=== PATIENT | female | born 1975 | race Caucasian/White ===

== ENCOUNTER 2024-10-20 04:01 | Inpatient (IN) | payer MEDICAID, SELFPAY ==
--- OUTSIDE RECORDS SUMMARY | 2024-09-11 11:00 | XMS_ITS ---
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 Assessments Encounter Date Diagnosis (ICD Code) Assessment Notes Treatment Notes Treatment Clinical Notes Section Notes 09/11/2024 Spondylosis without myelopathy or radiculopathy, cervicothoracic region (ICD-10 - M47.813) Plan Of Treatment Next Appt Details Provider Name:Kevon vidal, 12/07/2024 10:30:00 AM, [address], [address], [place], [address], Provider Name:Kevon vidal, 12/25/2024 10:00:00 AM, [address], [address], [place], [address], Progress Notes * Basilia ALCANTARA RDOB: 4 (49 yo F)Acc No.[id number]:09/11/2024 Patient: Basilia Schofield Provider: Chely Alvarez II, M.D. :1975 A ge:49 Y S ex:Female Date:09/11/2024 Address:[address] [place] [address], [place] [facility], [id number] Pcp:Nelson Soto DO-PCP * * Sign off status: Completed true * Provider: Chely Alvarez II, M.D. Date: 0 09/11/2024 Generated for Salud phillips/Osmin/Kary on: 0 10/20/2024 03:47 AM CDT
--- OUTSIDE RECORDS SUMMARY | 2024-10-11 11:45 | XMS_ITS ---
Author Organization [facility] Address [address] [place] [address] Care Team Providers Care Bartender Name Role Phone Charles -PCPNelson Primary Care Provider Unav ailable Kevon Alvarez II Unavailable [phone] Allergies Allergen (clinical drug ingredient) Drug/Non Drug Allergy documented on EMR Reaction Allergy Type Onset Date Status Vicodin hives Drug Allergy Active Ceftin hives Drug Allergy Active Toradol rash Drug Allergy Active ibuprofen Advil hives Drug Allergy Active ibuprofen hives Drug Allergy Active doxycycline doxycycline dizziness Drug Allergy Act kathi Results Component Value Reference Range Notes Urine Test ANALYZER Reviewed date:10/12/2024 07:18:53 AM Interpretation:+OPI +OXY +HYD Performing Lab: Notes/Report: +OPI +OXY +HYD Heroin Metabolite (6AM) NEG Amphetamine (AMP) NEG Benzodiazepine (BARRON) NEG Buprenorphine NEG Cocaine (FELECIA) NEG Hydrocodone (HYD) POS Methadone (MTD) NEG Opiate (OPI) POS Oxycodone (OXY) POS REASON FOR VISIT low back pain Medications Medication SIG (Take, Route, Frequency, Duration) Notes Start Date End Date Status Lidocaine, Topical 5% 1 patch applied topically once a day; Duration: 28 days Active Acetaminophen-Oxycodone Hydrochloride 325 mg-10 mg 1 tab(s) orally 3 times a day; Duration: 28 days AUGUST 2024 RX, DO NOT FILL SOONER THAN 28 DAYS, (OK TO FILL EARLY, ONLY IF CLOSED) M47.816 Active acetaminophen-oxycodone 325 mg-10 mg 1 tab(s) orally 3 times a day; Duration: 28 days JULY 2024 RX, DO NOT FILL SOONER THAN 28 DAYS, (OK TO FILL EARLY, ONLY IF CLOSED) M47.816 Active Claritin 10 mg 1 tab(s) orally once a day Active Synthroid 75 mcg (0.075 mg) 1 tab(s) orally once a day; Duration: 30 day(s) Active QUEtiapine 300 mg 1 tab(s) orally once a day 02/05/2022 Active All Day Allergy (Cetirizine) 10 mg 10mg orally PRN Active furosemide 40 mg 1 tab(s) orally PRN Active loratadine 10 mg 1 tab(s) orally PRN Active nortriptyline 75 mg 1 cap(s) orally once a day (at bedtime); Duration: 30 day(s) 02/05/2022 Active gabapentin 800 mg 1 tab(s) orally 4 times a day Active tiZANidine 4 mg 1 tab(s) orally 3 times a day; Duration: 30 day(s) 02/05/2022 Active pantoprazole 40 mg 1 ea orally PRN Active ergocalciferol 50,000 intl units 1 cap(s) orally once a week Active Vital Signs Blood pressure systolic 123 mm Hg 10/12/19 25 Blood pressure diastolic 74 mm Hg 025 Heart Rate 68 /min 10/11/2024 Height 65 in 10/11/2024 Weight 154 lbs 10/11/2024 BMI 25.62 kg/m2 10/11/2024 Encounters Encounter Location Date Provider Diagnosis [facility] [address] [place] [address] 10/11/2024 Kevon Alvarez Other skilled nursing (current) drug therapy Z79.899 ; Spondylosis without myelopathy or radiculopathy, lumbar region M47.816 ; Other spondylosis, cervical region M47.892 ; Pain in thoracic spine M54.6 ; Spondylosis without myelopathy or radiculopathy, thoracic region M47.814 ; Unilateral primary osteoarthritis, unspecified knee M17.10 ; Other spondylosis with radiculopathy, cervical region M47.22 and Radiculopathy, lumbar region M54.16 Assessments Encounter Date Diagnosis (ICD Code) Assessment Notes Treatment Notes Treatment Clinical Notes Section Notes 10/11/2024 Other terminal worker (current) drug therapy (ICD-10 - Z79.899) 10/11/2024 1) Refill oxycodone/APA P 10/325 mg TID 2) refill lidoderm 3. FU in 2 months 4. MRI of low back- after PT completed 5. Schedule RFA GHASSAN L4 L5 S1 August 18, 2024: The patient presents to the [facility] office in [facility] for an audiovisual-telem edicine visit. The patient was evaluated by the certified medical biller and a urine drug screen was obtained as well as vital signs. Portions of the physical examination were assisted by the certified medical biller during the audiovisual-telem edicine visit August 18, 2024: Basilia is a 49-year-old lady who has a history of neck surgery in the past. She has no history of lower back surgery. She does have persistent middle back and lower back pain however. The lower back pain extends into the left lower extremity down to the left foot. Her pain level today is 7/10. She underwent RFA in the thoracic spine in January 2024 and on the lower back May 2024. We discussed interventional therapy and she would like to repeat the thoracic RFA now and we will do that in addition to ordering TL S MRI scan without contrast because of what the patient describes as worsening pain in the middle and lower back. She says that there are times when his unbearable. She continues to take oxycodone and gabapentin. The [place] and urine drug screens were reviewed. The patient says that she can call the spine surgeon that did the neck surgery for an evaluation and I encouraged her to do that. In the meantime we will get the MRI scans and recheck for any changes in pathology. Patient is a 48 yo female who presents back to the clinic today for follow-up evaluation/treatm ent of chronic low back and midback pain. Low back pain is axial in nature and worsens with facet loading. Status post RFA GHASSAN L4-S1 with 90% relief ongoing. Thoracic spine pain is axial in nature and worsens with facet loading. Denies radiculopathy. She continues a HEP as tolerated. She also utilizes heat, ice, and topicals for additional relief. RTC in 2 months or sooner if needed. 10/11/2024 Spondylosis without myelopathy or radiculopathy, lumbar region (ICD-10 - M47.816) August 18, 2024: The patient presents to the [facility] office in [facility] for an audiovisual-telem edicine visit. The patient was evaluated by the certified medical biller and a urine drug screen was obtained as well as vital signs. Portions of the physical examination were assisted by the certified medical biller during the audiovisual-telem edicine visit August 18, 2024: Basilia is a 49-year-old lady who has a history of neck surgery in the past. She has no history of lower back surgery. She does have persistent middle back and lower back pain however. The lower back pain extends into the left lower extremity down to the left foot. Her pain level today is 7/10. She underwent RFA in the thoracic spine in January 2024 and on the lower back May 2024. We discussed interventional therapy and she would like to repeat the thoracic RFA now and we will do that in addition to ordering TL S MRI scan without contrast because of what the patient describes as worsening pain in the middle and lower back. She says that there are times when his unbearable. She continues to take oxycodone and gabapentin. The [place] and urine drug screens were reviewed. The patient says that she can call the spine surgeon that did the neck surgery for an evaluation and I encouraged her to do that. In the meantime we will get the MRI scans and recheck for any changes in pathology. Patient is a 48 yo female who presents back to the clinic today for follow-up evaluation/treatm ent of chronic low back and midback pain. Low back pain is axial in nature and worsens with facet loading. Status post RFA GHASSAN L4-S1 with 90% relief ongoing. Thoracic spine pain is axial in nature and worsens with facet loading. Denies radiculopathy. She continues a HEP as tolerated. She also utilizes heat, ice, and topicals for additional relief. RTC in 2 months or sooner if needed. 10/11/2024 Other spondylosis, cervical region (ICD-10 - M47.892) August 18, 2024: The patient presents to the [facility] office in [facility] for an audiovisual-telem edicine visit. The patient was evaluated by the certified medical biller and a urine drug screen was obtained as well as vital signs. Portions of the physical examination were assisted by the certified medical biller during the audiovisual-telem edicine visit August 18, 2024: Basilia is a 49-year-old lady who has a history of neck surgery in the past. She has no history of lower back surgery. She does have persistent middle back and lower back pain however. The lower back pain extends into the left lower extremity down to the left foot. Her pain level today is 7/10. She underwent RFA in the thoracic spine in January 2024 and on the lower back May 2024. We discussed interventional therapy and she would like to repeat the thoracic RFA now and we will do that in addition to ordering TL S MRI scan without contrast because of what the patient describes as worsening pain in the middle and lower back. She says that there are times when his unbearable. She continues to take oxycodone and gabapentin. The [place] and urine drug screens were reviewed. The patient says that she can call the spine surgeon that did the neck surgery for an evaluation and I encouraged her to do that. In the meantime we will get the MRI scans and recheck for any changes in pathology. Patient is a 48 yo female who presents back to the clinic today for follow-up evaluation/treatm ent of chronic low back and midback pain. Low back pain is axial in nature and worsens with facet loading. Status post RFA GHASSAN L4-S1 with 90% relief ongoing. Thoracic spine pain is axial in nature and worsens with facet loading. Denies radiculopathy. She continues a HEP as tolerated. She also utilizes heat, ice, and topicals for additional relief. RTC in 2 months or sooner if needed. 10/11/2024 Pain in thoracic spine (ICD-10 - M54.6) August 18, 2024: The patient presents to the [facility] office in [facility] for an audiovisual-telem edicine visit. The patient was evaluated by the certified medical biller and a urine drug screen was obtained as well as vital signs. Portions of the physical examination were assisted by the certified medical biller during the audiovisual-telem edicine visit August 18, 2024: Basilia is a 49-year-old lady who has a history of neck surgery in the past. She has no history of lower back surgery. She does have persistent middle back and lower back pain however. The lower back pain extends into the left lower extremity down to the left foot. Her pain level today is 7/10. She underwent RFA in the thoracic spine in January 2024 and on the lower back May 2024. We discussed interventional therapy and she would like to repeat the thoracic RFA now and we will do that in addition to ordering TL S MRI scan without contrast because of what the patient describes as worsening pain in the middle and lower back. She says that there are times when his unbearable. She continues to take oxycodone and gabapentin. The [place] and urine drug screens were reviewed. The patient says that she can call the spine surgeon that did the neck surgery for an evaluation and I encouraged her to do that. In the meantime we will get the MRI scans and recheck for any changes in pathology. Patient is a 48 yo female who presents back to the clinic today for follow-up evaluation/treatm ent of chronic low back and midback pain. Low back pain is axial in nature and worsens with facet loading. Status post RFA GHASSAN L4-S1 with 90% relief ongoing. Thoracic spine pain is axial in nature and worsens with facet loading. Denies radiculopathy. She continues a HEP as tolerated. She also utilizes heat, ice, and topicals for additional relief. RTC in 2 months or sooner if needed. 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 The patient was evaluated by the certified medical biller and a urine drug screen was obtained as well as vital signs. Portions of the physical examination were assisted by the certified medical biller during the audiovisual-telem edicine visit August 18, 2024: Basilia is a 49-year-old lady who has a history of neck surgery in the past. She has no history of lower back surgery. She does have persistent middle back and lower back pain however. The lower back pain extends into the left lower extremity down to the left foot. Her pain level today is 7/10. She underwent RFA in the thoracic spine in January 2024 and on the lower back May 2024. We discussed interventional therapy and she would like to repeat the thoracic RFA now and we will do that in addition to ordering TL S MRI scan without contrast because of what the patient describes as worsening pain in the middle and lower back. She says that there are times when his unbearable. She continues to take oxycodone and gabapentin. The [place] and urine drug screens were reviewed. The patient says that she can call the spine surgeon that did the neck surgery for an evaluation and I encouraged her to do that. In the meantime we will get the MRI scans and recheck for any changes in pathology. Patient is a 48 yo female who presents back to the clinic today for follow-up evaluation/treatm ent of chronic low back and midback pain. Low back pain is axial in nature and worsens with facet loading. Status post RFA GHASSAN L4-S1 with 90% relief ongoing. Thoracic spine pain is axial in nature and worsens with facet loading. Denies radiculopathy. She continues a HEP as tolerated. She also utilizes heat, ice, and topicals for additional relief. RTC in 2 months or sooner if needed. 10/11/2024 Unilateral primary osteoarthritis, unspecified knee (ICD-10 - M17.10) August 18, 2024: The patient presents to the [facility] office in [facility] for an audiovisual-telem edicine visit. The patient was evaluated by the certified medical biller and a urine drug screen was obtained as well as vital signs. Portions of the physical examination were assisted by the certified medical biller during the audiovisual-telem edicine visit August 18, 2024: Basilia is a 49-year-old lady who has a history of neck surgery in the past. She has no history of lower back surgery. She does have persistent middle back and lower back pain however. The lower back pain extends into the left lower extremity down to the left foot. Her pain level today is 7/10. She underwent RFA in the thoracic spine in January 2024 and on the lower back May 2024. We discussed interventional therapy and she would like to repeat the thoracic RFA now and we will do that in addition to ordering TL S MRI scan without contrast because of what the patient describes as worsening pain in the middle and lower back. She says that there are times when his unbearable. She continues to take oxycodone and gabapentin. The [place] and urine drug screens were reviewed. The patient says that she can call the spine surgeon that did the neck surgery for an evaluation and I encouraged her to do that. In the meantime we will get the MRI scans and recheck for any changes in pathology. Patient is a 48 yo female who presents back to the clinic today for follow-up evaluation/treatm ent of chronic low back and midback pain. Low back pain is axial in nature and worsens with facet loading. Status post RFA GHASSAN L4-S1 with 90% relief ongoing. Thoracic spine pain is axial in nature and worsens with facet loading. Denies radiculopathy. She continues a HEP as tolerated. She also utilizes heat, ice, and topicals for additional relief. RTC in 2 months or sooner if needed. 10/11/2024 Other spondylosis with radiculopathy, cervical region (ICD-10 - M47.22) August 18, 2024: The patient presents to the [facility] office in [facility] for an audiovisual-telem edicine visit. The patient was evaluated by the certified medical biller and a urine drug screen was obtained as well as vital signs. Portions of the physical examination were assisted by the certified medical biller during the audiovisual-telem edicine visit August 18, 2024: Basilia is a 49-year-old lady who has a history of neck surgery in the past. She has no history of lower back surgery. She does have persistent middle back and lower back pain however. The lower back pain extends into the left lower extremity down to the left foot. Her pain level today is 7/10. She underwent RFA in the thoracic spine in January 2024 and on the lower back May 2024. We discussed interventional therapy and she would like to repeat the thoracic RFA now and we will do that in addition to ordering TL S MRI scan without contrast because of what the patient describes as worsening pain in the middle and lower back. She says that there are times when his unbearable. She continues to take oxycodone and gabapentin. The [place] and urine drug screens were reviewed. The patient says that she can call the spine surgeon that did the neck surgery for an evaluation and I encouraged her to do that. In the meantime we will get the MRI scans and recheck for any changes in pathology. Patient is a 48 yo female who presents back to the clinic today for follow-up evaluation/treatm ent of chronic low back and midback pain. Low back pain is axial in nature and worsens with facet loading. Status post RFA GHASSAN L4-S1 with 90% relief ongoing. Thoracic spine pain is axial in nature and worsens with facet loading. Denies radiculopathy. She continues a HEP as tolerated. She also utilizes heat, ice, and topicals for additional relief. RTC in 2 months or sooner if needed. 10/11/2024 Radiculopathy, lumbar region (ICD-10 - M54.16) August 18, 2024: The patient presents to the [facility] office in [facility] for an audiovisual-telem edicine visit. The patient was evaluated by the certified medical biller and a urine drug screen was obtained as well as vital signs. Portions of the physical examination were assisted by the certified medical biller during the audiovisual-telem edicine visit August 18, 2024: Basilia is a 49-year-old lady who has a history of neck surgery in the past. She has no history of lower back surgery. She does have persistent middle back and lower back pain however. The lower back pain extends into the left lower extremity down to the left foot. Her pain level today is 7/10. She underwent RFA in the thoracic spine in January 2024 and on the lower back May 2024. We discussed interventional therapy and she would like to repeat the thoracic RFA now and we will do that in addition to ordering TL S MRI scan without contrast because of what the patient describes as worsening pain in the middle and lower back. She says that there are times when his unbearable. She continues to take oxycodone and gabapentin. The [place] and urine drug screens were reviewed. The patient says that she can call the spine surgeon that did the neck surgery for an evaluation and I encouraged her to do that. In the meantime we will get the MRI scans and recheck for any changes in pathology. Patient is a 48 yo female who presents back to the clinic today for follow-up evaluation/treatm ent of chronic low back and midback pain. Low back pain is axial in nature and worsens with facet loading. Status post RFA GHASSAN L4-S1 with 90% relief ongoing. Thoracic spine pain is axial in nature and worsens with facet loading. Denies radiculopathy. She continues a HEP as tolerated. She also utilizes heat, ice, and topicals for additional relief. RTC in 2 months or sooner if needed. Plan Of Treatment Medication Medication Name Sig Start Date Stop Date Notes Lidocaine, Topical 5% 1 patch applied topically once a day; Duration: 28 days Acetaminophen-Oxycodone Hydrochloride 325 mg-10 mg 1 tab(s) orally 3 times a day; Duration: 28 days AUGUST 2024 RX, DO NOT FILL SOONER THAN 28 DAYS, (OK TO FILL EARLY, ONLY IF CLOSED) M47.816 acetaminophen-oxycodone 325 mg-10 mg 1 tab(s) orally 3 times a day; Duration: 28 days JULY 2024 RX, DO NOT FILL SOONER THAN 28 DAYS, (OK TO FILL EARLY, ONLY IF CLOSED) M47.816 Treatment Notes Assessment Notes Other terminal worker (current) drug therapy 10/11/2024 1) Refill oxycodone/APAP 10/325 mg TID 2) refill lidoderm 3. FU in 2 months 4. MRI of low back- after PT completed 5. Schedule RFA GHASSAN L4 L5 S1 Next Appt Details Follow Up: 2 Months, Reason: Provider Name:Kevon vidal, 12/07/2024 10:30:00 AM, [address], [address], [address], Provider Name:Kevon vidal, 12/25/2024 10:00:00 AM, [address], [address], [place], [address], Progress Notes * Basilia ALCANTARA RDOB: 4 (49 yo F)Acc No.[id number]:10/11/2024 Patient: Basilia WHITFIELD Quinn Provider: Chely Alvarez II, M.D. :1975 A ge:49 Y S ex:Female Date:10/11/2024 Address:[facility] [place] [address], [place], [id number] Pcp:Nelson Soto DO-PCP Subjective: * Chief Complaints: * 1 . Low back pain. * HPI: T ODAYS PAIN EVALUATION: 49 year old female presents with c/o MEDICATION FOLLOW UP: T he patient is currently prescribed Percocet 10/325mg TID, which provides 9 0% relief of pain symptoms for 4 hours. The last dose was taken 0 08/18/2024 Denies side effects. PROCEDURAL FOLLOW UP: T he patient is present today for a follow-up after receiving 09/11/2024 RFA GHASSAN T8 T9 T10?Patient reports _80% pain relief since having the procedure and has lasted ongoing as of 10/11/2024 . C URRENT PAIN SYMPTOMS: L ocation of Worst Pain: M id-Back, A dditional Location of Pain: L ow Back GHASSAN, P ain Frequency: c onstant, always, P ain Description: b urning, cramping, sharp, A verage Pain Score VAS: 8 , P ain Exacerbation: activities,excersuise, P ain Alleviation: m edications, injections, A DL/Quality of Life Interference: Housework, Activities, yard work. P AIN MANAGEMENT TREATMENT HISTORY: IMAGING HISTORY: 0 12/02/2021 CT CERVICAL:No acute fracture or traumatic malalignment. Prevertebral soft tissues unremarkable. Multilevel degenerative changes noted. Most pronounced degenerative changes are again seen at the C5-C6 level. 0 12/15/2021 - MRI THORACIC:Unchanged shallow disc osteophyte changes at T11-T12. No thoracic spin high-grade central canal or foraminal stenosis. Partially assessed C5-C6 degenerative changes with potentially clinically significant central canal/neural foraminal stenosis 0 12/15/2021 - MRI LUMBAR:Redemonstrated L4-L5 disc bulge/protrusion eccentric in the left greater then right foraminal spaces. There is grossly unchanged moderate left and mild right foraminal narrowing. 1 - MRI CERVICAL:Broad-based dorsal and dorsolateral discosteophyte protrusion C5-C6 level with ventral cord flattening and moderate central canal stenosis. AP canal diameter approximately 5 mm midline. Severe left and moderate right foraminal stenosis. P REVIOUS INJECTION\PROCEDURE HISTORY: 1 04/26/2021#1 TMBB GHASSAN T8, T9, T10, provided 80% relief for 1 day 1 05/18/2021#2 TMBB GHASSAN T8, T9, T10, provided 80% relief for 2 days 0 04/20/2022RFA GHASSAN T8,T9,T10 90% relief for 3 months 0 07/14/2022#1 TFESI GHASSAN L4/L5 10% relief for 1 days 0 12/14/2022RFA GHASSAN T8, T9. T10 90% relief for 4 months 1 04/24/2022#1 LMBB GHASSAN L4 L5 L5 90% for 5 days 0 04/06/2023#2 LMBB GHASSAN L4, L5, S1, 80% relief for 2 days 0 4RFA GHASSAN L4, L5, S1 90% relief for 2 months 0 4RFA GHASSAN T8, T9, T10 80% relief for 6 months 0 12/07/2023- RFA GHASSAN L4, L5, S1 70% relief for for 5-6 months 1 4RFA GHASSAN T8,T9,T10; 80% relief for 6 months 0 06/15/2024RFA GHASSAN L4 L5 S1 90% relief for 4-5 months 0 09/11/2024RFA GHASSAN T8 T9 T10,80% relief ongoing as of 10/11/2024. P HYSICAL/AQUA THERAPY/DME/OTHER HISTORY: N o therapies reported - was told to avoid from ortho doctor 0 10/11/2024 Patient continues a prescribed home exercise program 3-5 times per week (stretches). P ERTINENT SURGICAL EVALUATIONS/SPECIALIST CONSULTS N o prior surgical consult . P REVIOUS PAIN CLINIC CARE: 2 022 - Former patient of [facility] . S UMMARY OF INITIAL EVALUATION: 1 04/13/2021New patient consults referred by Charles for chronic low back pain onset 15-year without incideent h istory of chronic spine pain. No inciting incident or accident. Just gradual worsening pain. Diagnosed with fibromyalgia and treated with gabapentin over the last several years. States her gabapentin keeps her fibro pain under control. Averaging approximately 2- 800 mg tablets nightly, but fills 120 tablets every 30 days. When asked what she does with her excessive medications, she states she flushes them down the toilet every month. Advised against this as it looks as she is taking at qid. encouraged to fern picker every other month or have pcp decrease dose. Gabapentin is currently prescribed by her PCP and does not need us to take over. If we do, we will lower dose. A s for her chronic cervical, thoracic, lumbar pain, they all are axial in nature, with minimal to no radiation. Worse with activity and controlled with injections and oral medication. She is underwent cervical and lumbar MRI approximately 2 months ago. Cervical MRI did show left-sided severe foraminal narrowing, central canal narrowing, patient's does not have any signs or symptoms of spinal stenosis or nerve impingement. Pain complaints and physical exam are more consistent with cervical spondylosis, arthritic changes. If she develops radicular pain, will have her evaluted by surgeon. States she has underwent cervical injections in the past which worsened her pain, and is not interested in repeating her cervical injections. Some relief with patient care assistant in the past, but she has been towed by an orthopedic physician (unknown name and time frame) to avoid patient care assistant as it may dislocate her neck.? H er mid back pain has been controlled with intermittent thoracic medial branch blocks, thoracic radiofrequency, thoracic trigger point injections. Last injections performed were over 1 year ago. Thoracic imaging is not available today. It is likely degenerative, arthritic, spondylosis in nature the same as her cervical lumbar spine. H er lumbar spine is not her worst pain today. Lumbar MRI reviewed. She does have a left-sided herniated disc but no complaints of left-sided radiculopathy. Has underwent lumbar injections in the past which were helpful.Discussed with patient the importance of multimodal analgesic. Not controlling with high-dose pain medications. We are her third pain clinic in the last 6 months. We will obtain notes from 2 prior clinics. She was previously on Percocet 10 mg 4 times daily. Discussed our clinic provides a maximum of a morphine equivalents of 30 mg. We will provide low-dose opioid medication, place her under close observation, and perform a multimodal analgesic plan. She is persistent that she can take no other pain medications, and can only tolerate Percocet.? S he has several red flags on her chart today, discussed importance of compliance, only taking her medication, taking as prescribed, using 1 pharmacy, being high risk and under close observation, and any abnormalities places her at risk for being dismissed from the clinic. W ill start at Percocet 7.5 mg 3 times daily as needed pain. Discussed that this will be the max dose our clinic will provide. Will schedule bilateral thoracic medial branch blocks at approximate levels T8-T9 and T10. U josette drug screen and Benjamín were reviewed today. She has recently filled multiple scripts for Percocet, by multiple providers, filled at multiple pharmacies.. C OMPLIANCE: RISK ASSESSMENT AND STRATIFICATION: R ISK GROUP: HIGH RISK . U RINE DRUG TESTIN 05/31/2023 Screen Unexpected (+BZO) 0 11/15/2023 Screen Expected Definitive Expected 1 Screen Expected 1 05/07/2023 Screen Expected 0 05/01/2024 Screen Expected, Definitive Expected 0 06/26/2024 Screen Expected 0 08/18/2024 0 10/11/2024. M ONITORING: M orphine Equivalent (MME): 45 K ASPER reviewed today and appropriate . T ESTING/RISK ASSESSMENTS O RT Score/Result: 0. * ROS: G ENERAL: Fever D enies. H EENT: Positive for r ecent dental procedure with teeth removal.? C ARDIOVASCULAR: Positive for d enies cardiovascular symptoms. ? R ESPIRATORY: Positive for d enies respiratory issues. G ASTROINTESTINAL: Positive for h eartburn. G ENITOURINARY: Positive for d enies genitourinary issues. M USCULOSKELETAL: Positive for l ow back pain, neck pain. N EUROLOGICAL: Positive for d enies neurological issues. P SYCHIATRIC: Positive for d enies psychological issues. E NDOCRINE: Positive for d enies endocrine issues. * Medical History: v itamin d deficiency diagnosed 1998 managed by , GERD diagnosed [address] Soto, hypothyroidism diagnosed 2014, managed by Dr. Soto. * Surgical History: c -section / [facility]/ doctor unknown / 3 night stay 2005, ankle/ [facility]/ doctor unknown/ 7 day stay 2012, cholecystectomy/ [facility]/ doctor unknown/ 1 night stay 2006, appendectomy/ [facility]/ doctor unknown/ 3 night stay 1992, thyroidectomy/ [facility]/ doctor unknown/ 2 night stay 2007, open heart/ [facility] / doctor unknown/ 14 day stay 2011, stomach/ [facility]/ doctor unknown / 5 day stay 2012. * Hospitalization/Major Diagno stic Procedure: Sophie Jimenez EKG showed low heart rate pt also had low magnesium and potassium overnight stay 05/2024. * Family History: N on-Contributory. Denies family hx of substance abuse. * Social History: S moking: Yes P PD: , age started smoking: ,determination:. P ersonal History Drug Use: No. Alcohol: No. * Medications: T aking Synthroid 75 mcg (0.075 mg) tablet 1 tab(s) orally once a day , Taking Claritin 10 mg tablet 1 tab(s) orally once a day , Taking tiZANidine 4 mg tablet 1 tab(s) orally 3 times a day , Taking gabapentin 800 mg tablet 1 tab(s) orally 4 times a day , Taking ergocalciferol 50,000 intl units capsule 1 cap(s) orally once a week , Taking pantoprazole 40 mg delayed release tablet 1 ea orally PRN , Taking nortriptyline 75 mg capsule 1 cap(s) orally once a day (at bedtime) , Taking loratadine 10 mg tablet 1 tab(s) orally PRN , Taking furosemide 40 mg tablet 1 tab(s) orally PRN , Taking All Day Allergy (Cetirizine) 10 mg tablet 10mg orally PRN , Taking QUEtiapine 300 mg tablet 1 tab(s) orally once a day , Taking acetaminophen-oxycodone 325 mg-10 mg tablet 1 tab(s) orally 3 times a day , Notes to Pharmacist: JULY 2024 RX, DO NOT FILL SOONER THAN 28 DAYS, (OK TO FILL EARLY, ONLY IF CLOSED) M47.816, Taking Acetaminophen-Oxycodone Hydrochloride 325 mg-10 mg tablet 1 tab(s) orally 3 times a day , Notes to Pharmacist: AUGUST 2024 RX, DO NOT FILL SOONER THAN 28 DAYS, (OK TO FILL EARLY, ONLY IF CLOSED) M47.816, Taking Lidocaine, Topical 5% film 1 patch applied topically once a day * Allergies: d oxycycline: dizziness - Allergy, Toradol: rash - Allergy, Vicodin: hives - Allergy, Ceftin: hives - Allergy, ibuprofen: hives - Allergy, Advil: hives - Allergy. Objective: * Vitals: B P: 123/74, HR: 68, Pain VAS (0-10): 9, Ht: 65, Wt: 154, BMI:25.62Index. * Examination: G eneral Examination: Nurse/Leaf Conditioner Helper: Peter gaines(MA-Pooja Handley 10/11/2024 04:13:59 PM EDT >. General Appearance: w ell-nourished individual in no acute distress. The patient is alert and oriented and cooperative for evaluation. HEENT: unremarkable. Heart: r egular rate via radial pulse. Neurologic Exam: P atient ambulates with an antalgic gait, pitched forward. Skin visible skin - normal, no rash. ? L umbar Spine/Lower Back: Palpation: diffuse tenderness throughout lumbar region, most particularly over lower lumbar facet joints. Spasms absent. Inspection: Spinal alignment no abnormal curvature noted.? Sensory exam: s ensation intact to light touch. Motor system: m otor strength s ymmetric in all muscle groups bilaterally. Range of motion: ROM moderately limited, moderate pain induced. Hyperextension - Pain with Facet loading, bilateral lateral flexion and extension induce moderate pain. T horacic Spine/Upper Back: Inspection: d iffuse tenderness throughout t horacic region, most particularly over lower T8-10.. Palpation: tenderness to palpation at the mid thoracic level, tenderness to palpation at the thoraco-lumbar junction. Range of motion of spines: limited ROM w flexion and extension and lateral rotation, pain noted w facet loading. Assessment: * Assessment: 1. O ther skilled nursing (current) drug therapy - Z79.899 (Primary) 2 . S pondylosis without myelopathy or radiculopathy, lumbar region - M47.816 3 . O ther spondylosis, cervical region - M47.892 4 . P ain in thoracic spine - M54.6 & #160; 5 . S pondylosis without myelopathy or radiculopathy, thoracic region - M47.814 ? 6 . U nilateral primary osteoarthritis, unspecified knee - M17.10 7 .?Other spondylosis with radiculopathy, cervical region - M47.22 8 . R adiculopathy, lumbar region - M54.16 August 18, 2024: The patient pr esents to the [facility] office in [facility] for an audiovisual-telemedicine visit. The patient was evaluated by the certified medical biller and a urine drug screen was obtained as well as vital signs. Portions of the physical examination were assisted by the certified medical biller during the audiovisual-telemedicine visit August 18, 2024: Basilia is a 49-year-old lady who has a history of neck surgery in the past. She has no history of lower back surgery. She does have persistent middle back and lower back pain however. The lower back pain extends into the left lower extremity down to the left foot. Her pain level today is 7/10. She underwent RFA in the thoracic spine in January 2024 and on the lower back May 2024. We discussed interventional therapy and she would like to repeat the thoracic RFA now and we will do that in addition to ordering TL S MRI scan without contrast because of what the patient describes as worsening pain in the middle and lower back. She says that there are times when his unbearable. She continues to take oxycodone and gabapentin. The Benjamín and urine drug screens were reviewed. The patient says that she can call the spine surgeon that did the neck surgery for an evaluation and I encouraged her to do that. In the meantime we will get the MRI scans and recheck for any changes in pathology. Patient is a 48 yo female who presents back to the clinic today for follow-up evaluation/treatment of chronic low back and midback pain. Low back pain is axial in nature and worsens with facet loading. Status post RFA GHASSAN L4-S1 with 90% relief ongoing. Thoracic spine pain is axial in nature and worsens with facet loading. Denies radiculopathy. She continues a HEP as tolerated. She also utilizes heat, ice, and topicals for additional relief. RTC in 2 months or sooner if needed. Plan: * Treatment: Value Reference Range H eroin Metabolite (6AM) NEG * A mphetamine (AMP) NEG * B enzodiazepine (BARRON) NEG * B uprenorphine NEG * C ocaine (FELECIA) NEG * H ydrocodone (HYD) POS POS * M ethadone (MTD) NEG * O piate (OPI) POS POS * O xycodone (OXY) POS POS * Carol Adrian 10/11/2024 04:54: 40 PM EDT >Naresh(A[employer]CRAFT CABIN [employer]ANER-BLAKE)Tania 10/11/2024 05:05:20 PM EDT > (Confirm All) Send specimen for definitive testing on Amphetamines, Anticonvulsants, Antitussive, Barbiturates,Bath Salts, Benzodiazepines, Buprenorphine, Fentanyl,WILFRIDO Analogue, Heroin, Illicits, Methadone, Methylphenidate, Muscle Relaxants, Nicotine, Opiates, Opioid Antagonist, Other Anxiolytic,Recreational Compounds, Sleep Aids, SSRI/SNRI,Synthetic Cannabinoids,Tricyclics drug classes Patient is prescribed an Opioid and the preliminary urine drug screen is positive for Opiates/Morphine. Send for confirmation to confirm that the specific prescribed Opioid is present as well as the appropriate metabolites Notes: 10/11/2024 1) Refill oxycodone/APAP 10/325 mg TID 2) refill lidoderm 3. FU in 2 months 4. MRI of low back- after PT completed 5. Schedule RFA GHASSAN L4 L5 S1?? * Follow Up: 2 Months * * Electronic signature of Vinay Alvarez II, M.D. on 10/20/2024 at 03:47 AM CDT Sign off status: Pending * Provider: Chely Alvarez II, M.D. Date: 10/11/2024 Generated for Salud phillips/Osmin/Israelsmitting on: 0 10/20/2024 03:47 AM CDT History and Physical Notes * HPI (History of Present Illness) Category Sub-Category Detail Notes Category Not es PAIN MANAGEMENT TREATMENT HISTORY SUMMARY OF INITIAL EVALUATION: 02/11/2022 New patient consults referred by Charles for chronic low back pain onset 15-year without incideent history of chronic spine pain. No inciting incident or accident. Just gradual worsening pain. Diagnosed with fibromyalgia and treated with gabapentin over the last several years. States her gabapentin keeps her fibro pain under control. Averaging approximately 2- 800 mg tablets nightly, but fills 120 tablets every 30 days. When asked what she does with her excessive medications, she states she flushes them down the toilet every month. Advised against this as it looks as she is taking at qid. encouraged to fern picker every other month or have pcp decrease dose. Gabapentin is currently prescribed by her PCP and does not need us to take over. If we do, we will lower dose. As for her chronic cervical, thoracic, lumbar pain, they all are axial in nature, with minimal to no radiation. Worse with activity and controlled with injections and oral medication. She is underwent cervical and lumbar MRI approximately 2 months ago. Cervical MRI did show left-sided severe foraminal narrowing, central canal narrowing, patient's does not have any signs or symptoms of spinal stenosis or nerve impingement. Pain complaints and physical exam are more consistent with cervical spondylosis, arthritic changes. If she develops radicular pain, will have her evaluted by surgeon. States she has underwent cervical injections in the past which worsened her pain, and is not interested in repeating her cervical injections. Some relief with patient care assistant in the past, but she has been towed by an orthopedic physician (unknown name and time frame) to avoid patient care assistant as it may dislocate her neck.? Her mid back pain has been controlled with intermittent thoracic medial branch blocks, thoracic radiofrequency, thoracic trigger point injections. Last injections performed were over 1 year ago. Thoracic imaging is not available today. It is likely degenerative, arthritic, spondylosis in nature the same as her cervical lumbar spine. Her lumbar spine is not her worst pain today. Lumbar MRI reviewed. She does have a left-sided herniated disc but no complaints of left-sided radiculopathy. Has underwent lumbar injections in the past which were helpful.Discussed with patient the importance of multimodal analgesic. Not controlling with high-dose pain medications. We are her third pain clinic in the last 6 months. We will obtain notes from 2 prior clinics. She was previously on Percocet 10 mg 4 times daily. Discussed our clinic provides a maximum of a morphine equivalents of 30 mg. We will provide low-dose opioid medication, place her under close observation, and perform a multimodal analgesic plan. She is persistent that she can take no other pain medications, and can only tolerate Percocet.? She has several red flags on her chart today, discussed importance of compliance, only taking her medication, taking as prescribed, using 1 pharmacy, being high risk and under close observation, and any abnormalities places her at risk for being dismissed from the clinic. Will start at Percocet 7.5 mg 3 times daily as needed pain. Discussed that this will be the max dose our clinic will provide. Will schedule bilateral thoracic medial branch blocks at approximate levels T8-T9 and T10. Urine drug screen and Benjamín were reviewed today. She has recently filled multiple scripts for Percocet, by multiple providers, filled at multiple pharmacies. IMAGING HISTORY: 12/02/2021 CT CERVIC AL: No acute fracture or traumatic malalignment. Prevertebral soft tissues unremarkable. Multilevel degenerative changes noted. Most pronounced degenerative changes are again seen at the C5-C6 level.12/15/2021 - MRI THORACIC: Unchanged shallow disc osteophyte changes at T11-T12. No thoracic spin high-grade central canal or foraminal stenosis. Partially assessed C5-C6 degenerative changes with potentially clinically significant central canal/neural foraminal /19/2022 - MRI LUMBAR: Redemonstrated L4-L5 disc bulge/protrusion eccentric in the left greater then right foraminal spaces. There is grossly unchanged moderate left and mild right foraminal narrowing.01/13/2022 - MRI CERVICAL: Broad-based dorsal and dorsolateral discosteophyte protrusion C5-C6 level with ventral cord flattening and moderate central canal stenosis. AP canal diameter approximately 5 mm midline. Severe left and moderate right foraminal stenosis PHYSICAL/AQUA THERAPY/DME/OT HER HISTORY: No therapies reported - was told to shari pagan from ortho doctor 10/11/2024 Patient continues a prescribed home exercise program 3-5 times per week (stretches) PERTINENT SURGICAL EVALUATIONS/SPECIALIST CONSULTS No prior surgical consult PREVIOUS INJECTION\PROCEDURE HISTORY: #1 TMBB GHASSAN T8, T9, T10, provided 80% relief for 1 day 03/17/2022 #2 TMBB GHASSAN T8, T9, T10, provided 80% relief for 2 days 04/20/2022 RFA GHASSAN T8,T9,T10 90% relief for 3 months 07/14/2022 #1 TFESI GHASSAN L4/L5 10% relief for 1 days 12/14/2022 RFA GHASSAN T8, T9. T10 90% relief for 4 months 02/22/2023 #1 LMBB GHASSAN L4 L5 L5 90% for 5 days 04/06/2023 #2 LMBB GHASSAN L4, L5, S1, 80% relief for 2 days 05/20/2023 RFA GHASSAN L4, L5, S1 90% relief for 2 months 07/06/2023 RFA GHASSAN T8, T9, T10 80% relief for 6 months 12/07/2023 - RFA GHASSAN L4, L5, S1 70% relief for for 5-6 months 02/01/2024 RFA GHASSAN T8,T9,T10; 80% relief for 6 months 06/15/2024 RFA GHASSAN L4 L5 S1 90% relief for 4-5 months 09/11/2024 RFA GHASSAN T8 T9 T10,80% relief ongoing as of 10/11/2024 PREVIOUS PAIN CLINIC CARE: 2021 - Former patient of [facility] COMPLIANCE RISK ASSESSMENT AND STRATIFICATION: RISK GROUP: HIGH RISK URINE DRUG TESTIN05/31/2023 Screen Un expected (+BZO) 11/15/2023 Screen Expected Definitive Expected 01/07/2024 Screen Expected 03/06/2024 Screen Expected 05/01/2024 Screen Expected, Definitive Expected 06/26/2024 Screen Expected 08/18/2024 10/11/2024 MONITORING: Morphine Equivalent (MME): 45 BENJAÍMN reviewed today and appropriate TESTING/RISK ASSESSMENTS ORT Score/Resul t: 0 TODAYS PAIN EVALUATION MEDICATION FOLLOW UP: The patient is currently prescribed Percocet 10/325mg TID, which provides 90% relief of pain symptoms for 4 hours. The last dose was taken 08/18/2024 Denies side effects CURRENT PAIN SYMPTOMS: Location of Worst Pain:: Mid-Back Additional Location of Pain:: Low Back B [place] Pain Frequency:: constant, always Pain Description:: burning, cramping, sh constanza Average Pain Score VAS:: 8 Pain Exacerbation:: activities,excersuis e Pain Alleviation:: medications, injectio ns ADL/Quality of Life Interference:: House work, Activities, yard work PROCEDURAL FOLLOW UP: The patient is pre sent today for a follow-up after receiving 09/11/2024 RFA GHASSAN T8 T9 T10 Patient reports _80% pain relief since having the procedure and has lasted ongoing as of 10/11/2024 Examination Category Sub-Category Detail Notes Category Not es General Examination HEENT: unremarkable Heart: regular rate via rad ial pulse General Appearance: well-nourished indiv idual in no acute distress. The patient is alert and oriented and cooperative for evaluation Skin visible skin - ric l, no rash Neurologic Exam: Patient ambulates wi th an antalgic gait, pitched forward Nurse/Leaf Conditioner Helper: Pooja Joy (MA-Lex) 10/11/2024 04:13:59 PM EDT > Thoracic Spine/Upper Back Range of motion of spi faheem: limited ROM w flexion and extension and lateral rotation, pain noted w facet loading Inspection: diffuse tenderness t hroughout thoracic region, most particularly over lower T8-10. Palpation: tenderness to palpat ion at the mid thoracic level, tenderness to palpation at the thoraco-lumbar junction Lumbar Spine/Lower Back Motor system: motor st rength symmetric in all muscle groups bilaterally Sensory exam: sensation intact to light touch Range of motion: ROM moderately limit ed, moderate pain induced. Hyperextension - Pain with Facet loading, bilateral lateral flexion and extension induce moderate pain Inspection: Spinal alignment no abnormal curvature noted Palpation: diffuse tenderness t hroughout lumbar region, most particularly over lower lumbar facet joints. Spasms absent
[2024-10-20] VITALS (23 sets, daily range): BP systolic 78–159; BP diastolic 54–94; PULSE 65–90; RESP 11–16; TEMP 36.1–36.6; O2SAT 92–99; BMI 29.9; BMI 25.7
--- NOTE | 2024-10-20 04:02 | ECG_ITS ---
APPROVED REPORT Exam: Resting ECG HR:67 bpm ECG Measurements Heart Rate 67 AXES RI 155 P 52 QRSd 163 QRS 26 QT 489 T 33 QTc 505 Conclusion SINUS RHYTHM WITH SINUS ARRHYTHMIA RIGHT BUNDLE BRANCH BLOCK [120+ ms QRS DURATION, UPRIGHT V1, 40+ ms S IN I/aVL/V4/V5/V6] ABNORMAL ECG UNCONFIRMED REPORT Electronically signed by : Emil Pradhan, 10/20/2024 16:47:14
--- NOTE | 2024-10-20 04:04 | CT_ITS ---
PROCEDURE INFORMATION: Exam: CTA Head With Contrast, Arteriography Exam date and time: 10/20/2024 4:38 AM Age: 49 years old Clinical indication: Stroke-like symptoms; Altered mental status/memory loss; Additional info: AMS, headache TECHNIQUE: Imaging protocol: Computed tomographic angiography of the head with contrast. Exam focused on the arteries. 3D rendering (Not supervised by radiologist): MIP and/or 3D reconstructed images were created by the technologist. Radiation optimization: All CT scans at this facility use at least one of these dose optimization techniques: automated exposure control; mA and/or kV adjustment per patient size (includes targeted exams where dose is matched to clinical indication); or iterative reconstruction. Contrast material: ISOVUE; Contrast volume: 80 ml; Contrast route: INTRAVENOUS (IV); COMPARISON: CT HEAD/BRAIN WO CON 10/20/2024 4:35 AM FINDINGS: ANTERIOR CIRCULATION: Right internal carotid artery: Intracranial segment is patent with no significant stenosis or occlusion. No aneurysm. Right middle cerebral artery: No occlusion or significant stenosis. No aneurysm. Right anterior cerebral artery: No occlusion or significant stenosis. No aneurysm. Left internal carotid artery: Intracranial segment is patent with no significant stenosis. No aneurysm. Left middle cerebral artery: No occlusion or significant stenosis. No aneurysm. Left anterior cerebral artery: No occlusion or significant stenosis. No aneurysm. POSTERIOR CIRCULATION: Right vertebral artery: No occlusion or significant stenosis. No aneurysm. Left vertebral artery: No occlusion or significant stenosis. No aneurysm. Basilar artery: No occlusion or significant stenosis. No aneurysm. Right posterior cerebral artery: No occlusion or significant stenosis. No aneurysm. Left posterior cerebral artery: No occlusion or significant stenosis. No aneurysm. Veins: There is no venous thrombosis. Brain: Normal. No hemorrhage. Unremarkable white matter. No mass effect. Cerebral ventricles: Normal. No ventriculomegaly. Bones/joints: Unremarkable. No acute fracture. Soft tissues: Unremarkable. IMPRESSION: No evidence for a embolism, significant stenosis, dissection, aneurysm, or venous thrombosis.
--- NOTE | 2024-10-20 04:04 | CT_ITS ---
PROCEDURE INFORMATION: Exam: CT Head Without Contrast Exam date and time: 10/20/2024 4:35 AM Age: 49 years old Clinical indication: Stroke-like symptoms; Altered mental status/memory loss; Additional info: AMS TECHNIQUE: Imaging protocol: Computed tomography of the head without contrast. Radiation optimization: All CT scans at this facility use at least one of these dose optimization techniques: automated exposure control; mA and/or kV adjustment per patient size (includes targeted exams where dose is matched to clinical indication); or iterative reconstruction. Other technique: STROKE PROTOCOL was implemented. COMPARISON: CT HEAD/BRAIN WO CON 10/20/2024 4:35 AM FINDINGS: Brain: Normal. No hemorrhage. Age appropriate white matter. No mass effect. No focal mass. The garcia-white matter junction is intact. Cerebral ventricles: No ventriculomegaly. Paranasal sinuses: Visualized sinuses are unremarkable. No fluid levels. Mastoid air cells: Visualized mastoid air cells are well aerated. Bones: Unremarkable. No acute fracture. Soft tissues: Unremarkable. IMPRESSION: Unremarkable noncontrast examination of brain. There is no hemorrhage or mass. There is no large infarction seen. ASSESSMENT: ASPECTS ([facility] Stroke Program Early CT Score) is 10.
--- NOTE | 2024-10-20 04:04 | CT_ITS ---
PROCEDURE INFORMATION: Exam: CTA Neck With Contrast Exam date and time: 10/20/2024 4:38 AM Age: 49 years old Clinical indication: Cognitive deficit; Altered mental status; Additional info: AMS, headache TECHNIQUE: Imaging protocol: Computed tomographic angiography of the neck with contrast. Exam focused on the cervical segments of the vasculature. 3D rendering (Not supervised by radiologist): MIP and/or 3D reconstructed images were created by the technologist. Radiation optimization: All CT scans at this facility use at least one of these dose optimization techniques: automated exposure control; mA and/or kV adjustment per patient size (includes targeted exams where dose is matched to clinical indication); or iterative reconstruction. Contrast material: ISOVUE; Contrast volume: 80 ml; Contrast route: INTRAVENOUS (IV); COMPARISON: CT HEAD/BRAIN WO CON 10/20/2024 4:35 AM FINDINGS: Right common carotid artery: No stenosis. No dissection or occlusion. Right internal carotid artery: Moderate atherosclerotic disease of the right sided internal carotid artery bulb that results in stenosis measuring 60%. There is good distal flow. Right external carotid artery: No occlusion or stenosis of the origin. Left common carotid artery: No stenosis. No dissection or occlusion. Left internal carotid artery: Moderate atherosclerotic disease within left-sided internal carotid artery bulb that results in stenosis measuring 50%. There is good distal flow. Left external carotid artery: No occlusion or stenosis of the origin. Right vertebral artery: No stenosis. No dissection or occlusion. Left vertebral artery: No stenosis. No dissection or occlusion. Thyroid: Postsurgical changes from resection of the thyroid. Soft tissues: Normal. No significant soft tissue swelling. Bones/joints: No acute fracture. Esophagus: Thickening of the wall the esophagus with adjacent fat stranding. IMPRESSION: 1. Moderate atherosclerotic disease of the right sided internal carotid artery bulb that results in stenosis measuring 60%. There is good distal flow. 2. Moderate atherosclerotic disease within left-sided internal carotid artery bulb that results in stenosis measuring 50%. There is good distal flow. 3. The remainder of the vascular structures are unremarkable. There is no other significant stenosis. There is no occlusion or aneurysm. 4. Thickening of the wall the esophagus with adjacent fat stranding. 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 REFERENCES: NASCET CRITERIA. The degree of stenosis in the cervical segment of the internal carotid artery is based on NASCET criteria. Normal is no stenosis. Mild is less than 50% stenosis. Moderate is 50-69% stenosis. Severe is 70% to 99% stenosis. Total occlusion is no detectable patent lumen.
--- NOTE | 2024-10-20 04:12 | ED_ITS ---
Discharge Plan Disposition Patient Disposition: Admitted Prescriptions Prescriptions: No Action Unobtainable Clinical Impressions Clinical Impression: Acute hypotension Altered mental status Qualifiers: Altered mental status type: stupor Qualified Code(s): R40.1 - Stupor Instructions Patient Instructions: DI for Altered Mental Status Print Language Print Language: Kinyarwanda Discharge ED Provider: Luis Stanley General Adult HPI General Chief complaint: Dizziness Stated complaint: lethargic, medication reaction, ams Time Seen by Provider: 10/20/24 04:01 History of Present Illness HPI narrative: 49-year-old female with a clear past medical history presents with altered mental status and hypotension from home. She has not been seen in our hospital before. She reportedly went to bed after taking her normal medications which include tizanidine, Seroquel, nortriptyline, gabapentin, Crestor, levothyroxine. She woke up with altered mental status, confused, dizzy. No reported trauma. She reports that she has had a headache and neck pain for the last several days. She is unable to provide a detailed history, is drowsy, intermittently arousable. EMS reports that there was a father on scene but he did not provide any additional history. Patient reports that she has had neck surgery, thyroid surgery, hysterectomy. She reports that she took only her normal amount of medications, did not take any extra. She reports that she has had meningitis before. Patient received Narcan with EMS with no change. Patient's blood pressure was very low, 50 systolic with EMS but improved with some fluids. Related Data Home Medications ?Medication ?Instructions ?Recorded ?Confirmed Unobtainable 10/20/24 10/20/24 Allergies Allergy/AdvReac Type Severity Reaction Status Date / Time doxycycline AdvReac Unknown Verified 10/20/24 04:15 allergy reaction tramadol AdvReac Unknown Verified 10/20/24 04:15 allergy reaction [facility] Disclaimer: The information contained in this section may have been updated after the patient was seen, as this information can be updated by other users. Social History Smoking Status: Current every day smoker alcohol intake: never current occupational status: other Travel in the last 8 weeks?: None ROS Obtained: Yes All systems reviewed & no additional complaints except as documented Physical Exam General General appearance: alert and lethargic Head Head exam: atraumatic and normocephalic Eye Eye exam: Present normal appearance and PERRL; Absent EOMI (Significant nystagmus, difficulty with eye movements) ENT ENT exam: Present normal oropharynx and normal external ear exam Neck Neck exam: Present normal inspection and full ROM (Pain with range of motion) Chest Chest inspection: Present normal inspection and symmetric chest wall rise; Absent tenderness Respiratory Respiratory exam: Present normal lung sounds bilaterally; Absent respiratory distress Cardiovascular Cardiovascular exam: Present regular rate and normal rhythm Abdominal Exam Abdominal exam: Present soft; Absent distention, tenderness or guarding Extremities Exam Extremities exam: Present normal inspection; Absent edema or joint swelling Back Exam Back exam: Present normal inspection; Absent tenderness Neurological Exam Neurological exam: Present other (Patient has intact sensation and movement in all 4 extremities. Patient is drowsy, arouses with painful stimuli.) Psychiatric Psychiatric exam: Present flat affect Skin Skin exam: Present warm, dry and normal color Lymphatic Lymphatic Findings: no adenopathy Medical Decision Making Medical Records Medical records reviewed: Yes I reviewed the patient's medical records. Screening: Per USPSTF and CDC recommendations, given the prevalence of disease in our region, it is our hospital?s policy to screen for HIV and viral Hepatitis for all patients aged 18 and over and those with ongoing risk factors. Amilcar Inquiry Pt receiving controlled substance: No Amilcar was queried for this patient: No Vital Signs: 10/20/24 04:04 10/20/24 04:20 10/20/24 04:49 Temperature 96.9 F L Temperature Source Temporal Artery Scan Pulse Rate 67 74 Pulse Rate [Radial] 69 Respiratory Rate 14 13 16 Blood Pressure 101/64 L 117/70 Blood Pressure [Right Arm] 78/54 L Blood Pressure Mean 74 84 Blood Pressure Mean [Right Arm] 62 Blood Pressure Source [Right Arm] Manual Cuff/ Auscultation Blood Pressure Position [Right Arm] Supine 02 Sat by Pulse Oximetry 98 99 97 Oxygen Delivery Method Room Air 10/20/24 04:50 10/20/24 05:00 10/20/24 05:10 Temperature Temperature Source Pulse Rate 70 70 71 Pulse Rate [Radial] Respiratory Rate 12 12 13 Blood Pressure 124/72 116/72 102/61 L Blood Pressure [Right Arm] Blood Pressure Mean 81 79 71 Blood Pressure Mean [Right Arm] Blood Pressure Source [Right Arm] Blood Pressure Position [Right Arm] 02 Sat by Pulse Oximetry 98 99 99 Oxygen Delivery Method 10/20/24 05:20 10/20/24 05:30 07/25/25 05:40 Temperature Temperature Source Pulse Rate 70 70 74 Pulse Rate [Radial] Respiratory Rate 13 12 12 Blood Pressure 103/61 L 100/61 L 90/59 L Blood Pressure [Right Arm] Blood Pressure Mean 73 68 64 Blood Pressure Mean [Right Arm] Blood Pressure Source [Right Arm] Blood Pressure Position [Right Arm] 02 Sat by Pulse Oximetry 98 97 98 Oxygen Delivery Method Lab Data Lab results reviewed: Yes I reviewed the patient's lab results. Lab Results 10/20/24 04:15: WBC 6.8, RBC 3.53 L, Hgb 10.6 L, Hct 30.6 L, MCV 86.7, MCH 30.0, MCHC 34.6, RDW 12.7, Plt Count 135 L, MPV 10.1, Neut % (Auto) 58.3, Lymph % (Auto) 30.6, [place] % (Auto) 9.4 H, Eos % (Auto) 1.0, Baso % (Auto) 0.3, Neut # (Auto) 4.0, Lymph # (Auto) 2.1, [place] # (Auto) 0.6, Eos # (Auto) 0.1, Baso # (Auto) 0.0, PT 11.8, INR 1.07, VBG pH 7.43 H, VBG pCO2 33.5 L, VBG pO2 150.3 H, VBG HCO3 21.7 L, VBG Total CO2 22.8 L, VBG O2 Saturation 98.8 H, VBG Base Excess -2.6 L, VBG Lactic Acid 2.2 H, Sodium 129 L, Potassium 2.5 L*, Chloride 101, Carbon Dioxide 24, Anion Gap 6.5, BUN 14, Creatinine 0.90, Estimated Creat Clear 95, Estimated GFR 66, Est GFR ( Amer) 80, Glucose 93, Calcium 7.0 L, Magnesium 1.7, Total Bilirubin 0.2, AST 24, ALT 15, Alkaline Phosphatase 55, Troponin I < 0.01, NT-Pro-B Natriuret Pep 274 H, Total Protein 4.9 L, Albumin 2.3 L, Globulin 2.6, Albumin/Globulin Ratio 0.9 L, Lipase 43, TSH < 0.02 L, Thyroxine (T4) 6.8, Salicylates < 1.0 L, Acetaminophen < 10 L, Plasma/Serum Alcohol < 10 10/20/24 05:00: Urine Color Yellow, Urine Appearance Clear, Urine pH 5.5, Ur Specific [place] 1.015, Urine Protein Negative, Urine Glucose (UA) Negative, Urine Ketones Negative, Urine Blood Negative, Urine Nitrate Negative, Urine Bilirubin Negative, Urine Urobilinogen 0.2, Ur Leukocyte Esterase Negative, Urine RBC 3-5, Urine WBC 3-5, Ur Squamous Epith Cells 3-5, Urine Bacteria 1+, Hyaline Casts 10-20, Urine Mucus 1+, Urine Opiates Screen Negative, Urine Methadone Screen Negative, Ur Barbituates Screen Negative, Ur Phencyclidine Scrn Negative, Ur Amphetamines Screen Negative, U Benzodiazepines Scrn Negative, Urine Cocaine Screen Negative, U Marijuana (THC) Screen Negative 10/20/24 04:15 10/20/24 04:15 Orders (Tests/Meds): ED MEDICATIONS Generic Name Dose Route Start Last Admin Trade Name Freq PRN Reason Stop Dose Admin Vancomycin/PEG/NA[place]/Lysine/Water 1.5 gm in 300 mls @ 150 mls/hr 10/20/24 04:30 Vancomycin 1.5gm/300ml (Peg) Premix IV 10/20/24 06:29 ONCE ONE Potassium Chloride/Water 100 mls @ 100 mls/hr 10/20/24 05:45 10/20/24 05:52 Potassium Chloride 10meq/100ml Ivpb IV 10/20/24 08:44 100 mls/hr Q1H SUJIT Administration Calcium Gluconate/Sodium Chloride 1 gm in 50 mls @ 50 mls/hr 10/20/24 05:50 Calcium Gluconate 1,000mg/50ml Nacl Premix IV 10/20/24 06:49 ONCE ONE Miscellaneous 1 each 10/20/24 04:15 10/20/24 06:14 Vancomycin Consult Request NOTAPPLIC 11/19/24 04:14 1 each CONSULT PHARMACY SUJIT Administration Discontinued Medications Generic Name Dose Route Start Last Admin Trade Name Freq PRN Reason Stop Dose Admin Sodium Chloride 1,000 mls @ 999 mls/hr 10/20/24 04:15 10/20/24 05:01 Sod Chlor 0.9% 1000ml Bag IV 10/20/24 05:15 999 mls/hr .Q1H1M SUJIT Administration Ceftriaxone Sodium 2 gm/ 100 mls @ 200 mls/hr 10/20/24 04:27 Sodium Chloride IV 10/20/24 04:56 ONCE ONE Magnesium Sulfate 2 gm in 50 mls @ 150 mls/hr 10/20/24 05:37 10/20/24 05:45 Magnesium Sulfate 2gm/50ml Premix IV 10/20/24 05:56 150 mls/hr ONCE ONE Administration Iopamidol 160 ml 10/20/24 04:48 10/20/24 04:49 Iopamidol-370 (76%);100ml Bottle IV 10/20/24 04:49 160 ml ONCE ONE Administration Sodium Chloride 50 ml 10/20/24 04:48 10/20/24 04:49 0.9 % Sodium Chloride 50 Ml Vial IV 10/20/24 04:49 50 ml ONCE ONE Administration Sodium Chloride 10 ml 10/20/24 04:48 10/20/24 04:49 Sodium Chloride 0.9% 10ml Syr (Rad Only) IV 10/20/24 04:49 10 ml ONCE ONE Administration ORDERS Category Date Time Status CT angio chest PE protocol Stat Cat Scan 10/20/24 04:[address] angio head Stat Cat Scan 10/20/24 04:[address] angio neck Stat Cat Scan 10/20/24 04:[address] head/brain wo con Stat Cat Scan 10/20/24 04:04 Completed Acetaminophen Stat Lab 10/20/24 04:15 Completed BNP [NT Pro Brain Natriuretic Pep.] Stat Lab 10/20/24 04:15 Completed CBC w/Auto Diff [Complete Blood Count Auto Diff] Stat Lab 10/20/24 04:15 Completed CMP [Comprehensive Metabolic Panel] Stat Lab 10/20/24 04:15 Completed CSF Cell Count w/ Dif Stat Lab 10/20/24 06:06 Received CSF Total Protein Stat Lab 10/20/24 06:06 Received Ethanol [Ethyl Alcohol] Stat Lab 10/20/24 04:15 Completed HIV Combo Stat Lab 10/20/24 04:15 Received Hepatitis C Ab Qual. W/ RFX Stat Lab 10/20/24 04:15 Received INR [Prothrombin Time INR] Stat Lab 10/20/24 04:15 Completed Lactate Venous Stat Lab 10/20/24 04:25 Ordered Lipase Stat Lab 10/20/24 04:15 Completed Magnesium Stat Lab 10/20/24 04:15 Completed Meningitis/Encephalitis panel Stat Lab 10/20/24 06:06 Received Salicylate Stat Lab 10/20/24 04:15 Completed T4 (Thyroxine) Stat Lab 10/20/24 04:15 Completed TSH [Thyroid Stimulating Hormone] Stat Lab 10/20/24 04:15 Completed Troponin I Q3H Lab 10/20/24 04:15 Completed Troponin I Q3H Lab 10/20/24 07:15 Ordered UA [Urinalysis and Microscopic] Stat Lab 10/20/24 05:00 Completed UDS [Drug Screen,Urine] Stat Lab 10/20/24 05:00 Completed Blood Culture Stat Micro 10/20/24 04:50 Received CSF Culture & Gram Stain Stat Micro 10/20/24 06:06 Received VBG [Venous Blood Gas] Stat RT 10/20/24 04:15 Completed ECG Data Tracing #1: I reviewed this ECG and interpreted as documented below: Sinus rhythm, right bundle branch block, no obvious ischemic changes. ECG initial impression date: 10/20/24 ECG initial impression time: 04:02 Medical Decision Narrative: 49-year-old female with unclear past medical history presents via EMS with hypotension and altered mental status, reports headache for the last few days, woke up dizzy, remembers taking her night meds.. History was obtained via interactive discussion with EMS, patient. On arrival, patient is afebrile, hypotensive with systolic in the 70s, regular rate and rhythm, satting appropriately on room air. Full physical exam performed and significant for no focal neurologic deficits, no evidence of trauma, patient is drowsy, somewhat confused, arouses to loud voice and painful stimuli, normal sensation in all extremities, nystagmus noted with extraocular movements. Differential includes but is not limited to medication overdose, intentional or unintentional, intracranial lesion, sepsis, meningitis. Patient was given 1 L IV fluid bolus for hypotension on arrival. Workup initiated including broad-spectrum laboratory and imaging evaluation including CT head CTA head neck CT chest. On re-evaluation, patient blood pressure significantly improved, now able with maps in the 70s after 1 L IV fluid bolus. Mental status unchanged. Laboratory workup independently interpreted by me and significant for significant hypokalemia with potassium 2.5. Also notable for hypocalcemia, hyponatremia at 129, VBG with only minimally elevated lactate, negative initial troponin. Thyroid studies nonactionable. Urine shows negative UDS, no infection.. Imaging independently interpreted by me and significant for CT head, CT head neck without intracranial lesion, bleeding, aneurysm. CT chest shows no PE on my interpretation. See radiology read for full review of final results. Given altered mental status, patient reported headache, hypotension, borderline low temperature, I cannot clinically rule out meningitis. Given this, emergent lumbar puncture was performed and patient was initiated on vancomycin and ceftriaxone for empiric coverage of meningitis after LP was performed. Given patient history, exam and workup, patient's presentation most likely represents altered mental status and hypotension, could be sedative-hypnotic overdose given she is on multiple sedating medications. Less likely intracranial infection as etiology. Interactive discussion was had with hospitalist on-call for admission for further evaluation management. Procedures Risk/Benefits of Procedure(s) Were Explained: Yes Lumbar Puncture Time Out Performed: Yes Patient Position: left lateral decubitus Skin Prep: 0.5% Chlorhexidine/Alcohol Local Anesthetic: lidocaine 1% Amount of anesthesia used (mL): 4 Spinal Needle Gauge: 20G Interspace Used: L3-L4 Opening Pressure (cmH20): 18 Fluid Initially Obtained: clear Complications: none Critical Care Critical Care Time Critical Care Time: Yes Attestation: On 10/20/24, the high probability of a clinically significant, sudden or life threatening deterioration of the following system(s) required my full and direct attention, intervention and personal management. The time I documented below is in addition to time spent performing reported procedures but includes the following listed in this critical care notation. Total Time Total Critical Care Time: 40
--- NOTE | 2024-10-20 04:18 | CT_ITS ---
PROCEDURE INFORMATION: Exam: CTA Chest With Contrast Exam date and time: 10/20/2024 4:44 AM Age: 49 years old Clinical indication: Other: Hypotension; Additional info: Hypotension, AMS TECHNIQUE: Imaging protocol: Computed tomographic angiography of the chest with contrast. Exam focused on the arteries. 3D rendering (Not supervised by radiologist): MIP and/or 3D reconstructed images were created by the technologist. Radiation optimization: All CT scans at this facility use at least one of these dose optimization techniques: automated exposure control; mA and/or kV adjustment per patient size (includes targeted exams where dose is matched to clinical indication); or iterative reconstruction. Contrast material: ISOVUE; Contrast volume: 80 ml; Contrast route: INTRAVENOUS (IV); COMPARISON: CT ANGIO NECK 10/20/2024 4:38 AM FINDINGS: Pulmonary arteries: Normal. No pulmonary emboli. Aorta: Unremarkable. No aortic aneurysm. No aortic dissection. Lungs: Bibasilar atelectasis. Pleural spaces: Unremarkable. No pneumothorax. No pleural effusion. Prior median sternotomy. Heart: Unremarkable. No cardiomegaly. No pericardial effusion. Coronary arteries: Small amount of coronary calcium. Lymph nodes: Unremarkable. No enlarged lymph nodes. Bones/joints: Unremarkable. No acute fracture. Soft tissues: Cholecystectomy Unremarkable. IMPRESSION: 1. No evidence of pulmonary embolus or other acute process. 2. Small amount of coronary calcium present.
[2024-10-20 04:41] LABS: VBG PCO2 33.5 mmol/L (35-51); VBG PH 7.43 mmol/L (7.31-7.41); VBG PO2 150.3 mmol/L (28-40)
[2024-10-20 04:42] LABS: Lactate Venous 2.2 mmol/L (0.4-2.0); VBG HCO3 21.7 mmol/L (23-30)
--- OUTSIDE RECORDS SUMMARY | 2024-10-20 04:48 | XMS_ITS | Patient Health Record ---
Author Organization [facility] Address [address] [place] [address] Care Team Providers Care Galley Cook Name Role Phone Charles -PCPNelson Primary Care Provider Unav ailable Kevon Alvarez II Unavailable Michi Jacques Unavailable [phone] Allergies Allergen (clinical drug ingredient) Drug/Non Drug Allergy documented on EMR Reaction Allergy Type Onset Date Status Vicodin hives Drug Allergy Active Ceftin hives Drug Allergy Active Toradol rash Drug Allergy Active ibuprofen Advil hives Drug Allergy Active ibuprofen hives Drug Allergy Active doxycycline doxycycline dizziness Drug Allergy Act kathi Results Component Value Reference Range Notes Urine Test ANALYZER Reviewed date:01/10/2024 07:21:16 AM Interpretation:+OXY Performing Lab: Notes/Report: +OXY Heroin Metabolite (6AM) NEG Amphetamine (AMP) NEG Benzodiazepine (BARRON) NEG Buprenorphine NEG Cocaine (FELECIA) NEG Hydrocodone (HYD) NEG Methadone (MTD) NEG Opiate (OPI) NEG Oxycodone (OXY) POS Urine Test ANALYZER Reviewed date:05/02/2024 07:49:05 AM Interpretation:+OXY Performing Lab: Notes/Report: +OXY Heroin Metabolite (6AM) NEG Amphetamine (AMP) NEG Benzodiazepine (BARRON) NEG Buprenorphine NEG Cocaine (FELECIA) NEG Hydrocodone (HYD) NEG Methadone (MTD) NEG Opiate (OPI) NEG Oxycodone (OXY) POS Urine Test ANALYZER Reviewed date:08/18/2024 04:08:45 PM Interpretation:+OXY Performing Lab: Notes/Report: +OXY Heroin Metabolite (6AM) NEG Amphetamine (AMP) NEG Benzodiazepine (BARRON) NEG Buprenorphine NEG Cocaine (FELECIA) NEG Hydrocodone (HYD) NEG Methadone (MTD) NEG Opiate (OPI) NEG Oxycodone (OXY) POS Urine Test ANALYZER Reviewed date:11/15/2023 02:03:33 PM Interpretation:+HYD+OPI+OXY Performing Lab: Notes/Report: +HYD+OPI+OXY Heroin Metabolite (6AM) NEG Amphetamine (AMP) NEG Benzodiazepine (BARRON) NEG Buprenorphine NEG Cocaine (FELECIA) NEG Hydrocodone (HYD) POS Methadone (MTD) NEG Opiate (OPI) POS Oxycodone (OXY) POS Urine Test ANALYZER Reviewed date:03/07/2024 01:30:12 PM Interpretation:+OXY Performing Lab: Notes/Report: +OXY Heroin Metabolite (6AM) NEG Amphetamine (AMP) NEG Benzodiazepine (BARRON) NEG Buprenorphine NEG Cocaine (FELECIA) NEG Hydrocodone (HYD) NEG Methadone (MTD) NEG Opiate (OPI) NEG Oxycodone (OXY) POS Urine Test LCMS Definitive Reviewed date:05/30/2024 01:54:36 PM Interpretation:+Lance +Oxy3/3 Performing Lab: Notes/Report: +Lance +Oxy3/3 Urine Test ANALYZER Reviewed date:10/12/2024 07:18:53 AM Interpretation:+OPI +OXY +HYD Performing Lab: Notes/Report: +OPI +OXY +HYD Heroin Metabolite (6AM) NEG Amphetamine (AMP) NEG Benzodiazepine (BARRON) NEG Buprenorphine NEG Cocaine (FELECIA) NEG Hydrocodone (HYD) POS Methadone (MTD) NEG Opiate (OPI) POS Oxycodone (OXY) POS Urine Test LCMS Definitive Reviewed date:11/23/2023 06:29:23 AM Interpretation:+gbp+oxy 3/3 Performing Lab: Notes/Report: +gbp+oxy 3/3 Urine Test ANALYZER Reviewed date:06/26/2024 02:34:36 PM Interpretation:+OXY Performing Lab: Notes/Report: +OXY Heroin Metabolite (6AM) NEG Amphetamine (AMP) NEG Benzodiazepine (BARRON) NEG Buprenorphine NEG Cocaine (FELECIA) NEG Hydrocodone (HYD) NEG Methadone (MTD) NEG Opiate (OPI) NEG Oxycodone (OXY) POS Reason For Referral Reason PFC 09/15,08/29- MRI Laura mber Spine without Contrast MRI Thoracic Spine without Contrast Diagnosis 1 Spondylosis without myelopathy or radiculopathy, lumbar region (M47.816) Diagnosis 2 Other spondylosis wi th radiculopathy, lumbar region (M47.26) Diagnosis 3 Pain in thoracic spi ne (M54.6) Diagnosis 4 Spondylosis without myelopathy or radiculopathy, thoracic region (M47.814) Referral Organization [facility] Referring Provider First Name Kevon Referring Provider Last Name Memorebeca Referring Provider Speciality Pain Manag ement Referred Organization [facility] Referred Address [address] [place],[address] Referred Provider Specialty Radiology General Notes Harpal (RASHMI-Evv),Ariadne ty 08/29/2024 2:29:55 PM > TE sent to [facility]. Need the 08/18/24 note updated with dates performing HEP., Zenobia (BALDEMAR GAYTAN),Colten 09/13/2024 8:58:03 AM > patient reports she does not document her stretches or exercises but will start today and bring it in next ov Referral Priority Routine Medications Medication SIG (Take, Route, Frequency, Duration) Notes Start Date End Date Status Lidocaine, Topical 5% 1 patch applied topically once a day; Duration: 28 days Active gabapentin 800 mg 1 tab(s) orally 4 times a day Active tiZANidine 4 mg 1 tab(s) orally 3 times a day; Duration: 30 day(s) 02/05/2022 Active Claritin 10 mg 1 tab(s) orally once a day Active Synthroid 75 mcg (0.075 mg) 1 tab(s) orally once a day; Duration: 30 day(s) Active acetaminophen-oxycodone 325 mg-10 mg 1 tab(s) orally 3 times a day; Duration: 28 days September 2024 RX DO NOT FILL SOONER THAN 28 DAYS, (OK TO FILL EARLY, ONLY IF CLOSED) M47.816 10/11/2024 Active Acetaminophen-Oxycodone Hydrochloride 325 mg-10 mg 1 tab(s) orally 3 times a day; Duration: 28 days October 2024 RX DO NOT FILL SOONER THAN 28 DAYS, (OK TO FILL EARLY, ONLY IF CLOSED) M47.816 10/11/2024 Active QUEtiapine 300 mg 1 tab(s) orally once a day 02/05/2022 Active All Day Allergy (Cetirizine) 10 mg 10mg orally PRN Active furosemide 40 mg 1 tab(s) orally PRN Active loratadine 10 mg 1 tab(s) orally PRN Active nortriptyline 75 mg 1 cap(s) orally once a day (at bedtime); Duration: 30 day(s) 02/05/2022 Active pantoprazole 40 mg 1 ea orally PRN Active ergocalciferol 50,000 intl units 1 cap(s) orally once a week Active Problems Problem Type SNOMED Code ICD Code Onset Dates Problem Status W/U Status Risk Notes Problem Osteoarthritis of knee (990323016) Unilateral primary osteoarthritis, unspecified knee (M17.10) Active confirmed Problem Cervical spondylosis without myelopathy (634920092) Other spondylosis with radiculopathy, cervical region (M47.22) Active confirmed Problem Lumbosacral spondylosis without myelopathy (01084140) Other spondylosis with radiculopathy, lumbar region (M47.26) Active confirmed Problem Cervical spondylosis without myelopathy (637052515) Spondylosis without myelopathy or radiculopathy, cervicothoracic region (M47.813) Active confirmed Problem Thoracic spondylosis without myelopathy (561921302) Spondylosis without myelopathy or radiculopathy, thoracic region (M47.814) Active confirmed Problem Lumbosacral spondylosis without myelopathy (81565664) Spondylosis without myelopathy or radiculopathy, lumbar region (M47.816) Active confirmed Problem Cervical spondylosis without myelopathy (781475323) Other spondylosis, cervical region (M47.892) Active confirmed Problem Lumbar radiculopathy (505445310) Radiculopathy, lumbar region (M54.16) Active confirmed Problem Pain in thoracic spine (824879428) Pain in thoracic spine (M54.6) Active confirmed Problem Long-term current use of drug therapy (666464447) Other senior living (current) drug therapy (Z79.899) Active confirmed Vital Signs Heart Rate 68 /min 10/11/2024 Blood pressure diastolic 74 mm Hg 10/11/2024 Height 65 in 10/11/2024 Blood pressure systolic 123 mm Hg 10/11/2024 Weight 154 lbs 10/11/2024 BMI 25.62 kg/m2 10/11/2024 Encounters Encounter Location Date Provider Diagnosis [facility] [address] [place] [address] 10/11/2024 Kevon Alvarez Other terminal superintendent (current) drug therapy Z79.899 ; Spondylosis without myelopathy or radiculopathy, lumbar region M47.816 ; Other spondylosis, cervical region M47.892 ; Pain in thoracic spine M54.6 ; Spondylosis without myelopathy or radiculopathy, thoracic region M47.814 ; Unilateral primary osteoarthritis, unspecified knee M17.10 ; Other spondylosis with radiculopathy, cervical region M47.22 and Radiculopathy, lumbar region M54.16 [facility] [address] [place] [address] 11/15/2023 Kevon Alvarez Other senior living (current) drug therapy Z79.899 ; Spondylosis without myelopathy or radiculopathy, lumbar region M47.816 ; Other spondylosis, cervical region M47.892 ; Pain in thoracic spine M54.6 ; Spondylosis without myelopathy or radiculopathy, thoracic region M47.814 and Unilateral primary osteoarthritis, unspecified knee M17.10 [facility] [address] [place] [address] 12/07/2023 Kevon Alvarez Other spondylosis wi th radiculopathy, lumbar region M47.26 [facility] [address] [place] [address] 01/07/2024 Kevon Alvarez Other senior living (current) drug therapy Z79.899 ; Spondylosis without myelopathy or radiculopathy, lumbar region M47.816 ; Other spondylosis, cervical region M47.892 ; Pain in thoracic spine M54.6 ; Spondylosis without myelopathy or radiculopathy, thoracic region M47.814 and Unilateral primary osteoarthritis, unspecified knee M17.10 [facility] [address] [place] [address] 02/01/2024 Kevon Alvarez Spondylosis without myelopathy or radiculopathy, cervicothoracic region M47.813 [facility] [address] [place] [address] 03/06/2024 Kevon Alvarez Other terminal superintendent (current) drug therapy Z79.899 ; Spondylosis without myelopathy or radiculopathy, lumbar region M47.816 ; Other spondylosis, cervical region M47.892 ; Pain in thoracic spine M54.6 ; Spondylosis without myelopathy or radiculopathy, thoracic region M47.814 and Unilateral primary osteoarthritis, unspecified knee M17.10 [facility] [address] [place] [address] 05/01/2024 Kevon Alvarez Other terminal superintendent (current) drug therapy Z79.899 ; Spondylosis without myelopathy or radiculopathy, lumbar region M47.816 ; Other spondylosis, cervical region M47.892 ; Pain in thoracic spine M54.6 ; Spondylosis without myelopathy or radiculopathy, thoracic region M47.814 ; Unilateral primary osteoarthritis, unspecified knee M17.10 ; Other spondylosis with radiculopathy, cervical region M47.22 and Radiculopathy, lumbar region M54.16 [facility] [address] [place] [address] 06/15/2024 Kevon Alvarez Other spondylosis wi th radiculopathy, lumbar region M47.26 [facility] [address] [place] [address] 06/26/2024 Kevon Alvarez Other senior living (current) drug therapy Z79.899 ; Spondylosis without myelopathy or radiculopathy, lumbar region M47.816 ; Other spondylosis, cervical region M47.892 ; Pain in thoracic spine M54.6 ; Spondylosis without myelopathy or radiculopathy, thoracic region M47.814 ; Unilateral primary osteoarthritis, unspecified knee M17.10 ; Other spondylosis with radiculopathy, cervical region M47.22 and Radiculopathy, lumbar region M54.16 [facility] [address] [place] [address] 08/18/2024 Michi Jacques Other terminal superintendent (current) drug therapy Z79.899 ; Spondylosis without myelopathy or radiculopathy, lumbar region M47.816 ; Other spondylosis, cervical region M47.892 ; Pain in thoracic spine M54.6 ; Spondylosis without myelopathy or radiculopathy, thoracic region M47.814 ; Unilateral primary osteoarthritis, unspecified knee M17.10 ; Other spondylosis with radiculopathy, cervical region M47.22 and Radiculopathy, lumbar region M54.16 [facility] [address] [place] [address] 09/11/2024 Kevon Alvarez Spondylosis without myelopathy or radiculopathy, cervicothoracic region M47.813 [facility] [address] [place] [address] 11/11/2023 Kevon Alvarez Other senior living (current) drug therapy Z79.899 [facility] [address] [place] [address] 11/15/2023 Kevon Alvarez [facility] [address] [place] [address] 11/15/2023 Kevon Alvarez Other terminal superintendent (current) drug therapy Z79.899 [facility] [address] [place] [address] 11/19/2023 Kevon Alvarez [facility] [address] [place] [address] 01/07/2024 Kevon Alvarez Other senior living (current) drug therapy Z79.899 [facility] [address] [place] [address] 01/25/2024 Kevon Alvarez [facility] [address] [place] [address] 02/08/2024 Kevon Alvarez [facility] [address] [place] [address] 03/06/2024 Kevon Alvarez Other senior living (current) drug therapy Z79.899 [facility] [address] [facility] [place] [address] 05/01/2024 Kevon Alvarez Other senior living (current) drug therapy Z79.899 [facility] [address] [place] [address] 06/26/2024 Kevon Alvarez Other senior living (current) drug therapy Z79.899 [facility] [address] [place] [address] 08/29/2024 Michi Jacques [facility] [address] [place] [address] 08/29/2024 Michi Jacques [facility] [address] [place] [address] 10/11/2024 Kevon Alvarez Other terminal superintendent (current) drug therapy Z79.899 Assessments Encounter Date Diagnosis (ICD Code) Assessment Notes Treatment Notes Treatment Clinical Notes Section Notes 10/11/2024 Other senior living (current) drug therapy (ICD-10 - Z79.899) 10/11/2024 Other terminal superintendent (current) drug therapy (ICD-10 - Z79.899) 10/11/2024 1) Refill oxycodone/APAP 10/325 mg TID 2) refill lidoderm 3. FU in 2 months 4. MRI of low back- after PT completed 5. Schedule RFA GHASSAN L4 L5 S1 August 18, 2024: The patient presents to the [facility] office in [facility] for an audiovisual-tele medicine visit. The patient was evaluated by the medical grade shoemaker and a urine drug screen was obtained as well as vital signs. Portions of the physical examination were assisted by the medical grade shoemaker during the audiovisual-tele medicine visit August 18, 2024: Basilia is a [...] back to the clinic today for follow-up evaluation/treat ment of chronic low back and midback pain. [...] in 2 months or sooner if needed. 09/11/2024 Spondylosis without myelopathy or radiculopathy, cervicothoracic region (ICD-10 - M47.813) 08/18/2024 Other senior living (current) drug therapy (ICD-10 - Z79.899) August 18, 2024 1) Refill oxycodone/APAP 10/325 mg TID 2) Continue lidoderm 3. FU in 2 months 4. MRI of low back 5. Schedule RFA GHASSAN T8-10 August 18, 2024: The patient presents to the [facility] office in [facility] for an audiovisual-tele medicine visit. The patient was evaluated by the medical grade shoemaker and a urine drug screen was obtained as well as vital signs. Portions of the physical examination were assisted by the medical grade shoemaker during the audiovisual-tele medicine visit August 18, 2024: Basilia is a [...] back to the clinic today for follow-up evaluation/treat ment of chronic low back and midback pain. [...] in 2 months or sooner if needed. 06/26/2024 Other terminal superintendent (current) drug therapy (ICD-10 - Z79.899) 08/18/2024 Spondylosis without myelopathy or radiculopathy, lumbar region (ICD-10 - M47.816) August 18, 2024: The patient presents to the [facility] office in [facility] for an audiovisual-tele medicine visit. The patient was evaluated by the medical grade shoemaker and a urine drug screen was obtained as well as vital signs. Portions of the physical examination were assisted by the medical grade shoemaker during the audiovisual-tele medicine visit August 18, 2024: Basilia is a [...] back to the clinic today for follow-up evaluation/treat ment of chronic low back and midback pain. [...] in 2 months or sooner if needed. 06/26/2024 Other senior living (current) drug therapy (ICD-10 - Z79.899) 06/26/2024 1) Refill oxycodone/APAP 10/325 mg TID 2) Continue lidoderm 3. FU in 2 months 06/26/2024 Patient is a 48 yo female who presents back to the clinic today for follow-up evaluation/treat ment of chronic low back and midback pain. [...] in 2 months or sooner if needed. 06/15/2024 Other spondylosis with radiculopathy, lumbar region (ICD-10 - M47.26) 06/26/2024 Spondylosis without myelopathy or radiculopathy, lumbar region (ICD-10 - M47.816) 06/26/2024 Patient is a 48 yo female who presents back to the clinic today for follow-up evaluation/treat ment of chronic low back and midback pain. [...] in 2 months or sooner if needed. 05/01/2024 Other terminal superintendent (current) drug therapy (ICD-10 - Z79.899) 05/01/24 1) Refill oxycodone/APAP 10/325 mg TID 2) Continue lidoderm 3. Reviewed Narcotic Agreement policies, specifically stressed a) pain medication from one provider only b) no illegal drug use c) take pain medication as prescribed, follow directions. 4. FU in 2 months 5. Order RFA GHASSAN L4,L5,S1 (repeat after 06/12) 05/01/24 The patient presents to the [facility] office in [place], [place] for an telemedicine visit. The patient was evaluated by the medical grade shoemaker and a urine drug screen was obtained as well as vital signs. Patient consented to telemed visit. Patient is a 48 yo female who presents back to the clinic today for follow-up evaluation/treat ment of chronic low back and midback pain. Low back pain is axial in nature and worsens with facet loading. Status post RFA GHASSAN L4-S1 with 70% relief ongoing. Will order repeat RFA GHASSAN L4-S1 as this injection allows her to complete ADLs easier if completed every 6 months. Thoracic spine pain is axial in nature and worsens with facet loading. Denies radiculopathy. Status post RFA GHASSAN T8-10 with 80% relief ongoing. She continues a HEP as tolerated. She also utilizes heat, ice, and topicals for additional relief. RTC in 2 months or sooner if needed. 05/01/2024 Other terminal superintendent (current) drug therapy (ICD-10 - Z79.899) 03/06/2024 Other terminal superintendent (current) drug therapy (ICD-10 - Z79.899) 05/01/2024 Spondylosis without myelopathy or radiculopathy, lumbar region (ICD-10 - M47.816) 05/01/24 The patient presents to the [facility] office in [place], [place] for an telemedicine visit. The patient was evaluated by the medical grade shoemaker and a urine drug screen was obtained as well as vital signs. Patient consented to telemed visit. Patient is a 48 yo female who presents back to the clinic today for follow-up evaluation/treat ment of chronic low back and midback pain. Low back pain is axial in nature and worsens with facet loading. Status post RFA GHASSAN L4-S1 with 70% relief ongoing. Will order repeat RFA GHASSAN L4-S1 as this injection allows her to complete ADLs easier if completed every 6 months. Thoracic spine pain is axial in nature and worsens with facet loading. Denies radiculopathy. Status post RFA GHASSAN T8-10 with 80% relief ongoing. She continues a HEP as tolerated. She also utilizes heat, ice, and topicals for additional relief. RTC in 2 months or sooner if needed. 03/06/2024 Other senior living (current) drug therapy (ICD-10 - Z79.899) 03/06/2024 1) Refill oxycodone/APAP 10/325 mg TID 2) F/u in 2 months 3) S/P RFA GHASSAN L4,L5,S1 4) Schedule repeat GHASSAN RFA T8, T9, T10 5) Refer for tens unit- pending 6) Start lidoderm 01/07/2024 Patient reports return of her thoracic axial pain, she reports worse with prolonged sitting, prolonged standing and standing slightly flexed. Diagnostic studies have demonstrated facet arthropathy in the posterior elements in the lower lumbar region as well as in the mid thoracic spine. Complains of tenderness with palpation. Despite HEP, pain medications, and limited activity. She responded very well with significant pain benefit from the last thoracic RFA in June 2023. She is requesting to schedule repeat RFA GHASSAN T8, T9, T10 at todays office visit for relief of thoracic axial pain. 07/06/2023 RFA GHASSAN T8, T9, T10 80% relief for 6 months 12/07/2023 - RFA GHASSAN L4, L5, S1 70% relief for 3 weeks Continue current regimen. She denies side effects to the prescribed regimen. RFA of Thoracic ordered. Continue HEP. Benjamín and RISSA reviewed. Schedule to follow up in 2 months. 9DEC24 - Patient reports ongoing neck pain with functional deficits, she has responded well to her past thoracic and lumbar RFA injection with significant improved level of pain and function. She is requesting an increase in MED po, I recommended at this point a ITP trial if her current MED is not working well. Patient reports no side effects with the pain medications, and is doing the HEP. Most recentn BENJAMÍN and SONALIS reviewed. Will continue with current treatment including current medication regimen, HEP, and activity as tolerated. She declines intrathecal pain pump. Will Rx Lidoderm patch trial her her lower cervical, and back pain. Will inquired on the planned prior Rx of her TENS unit. Will need opinion from Dr. Alvarez regarding the po dosing of opioids in relation to patients request. 02/01/2024 Spondylosis without myelopathy or radiculopathy, cervicothoracic region (ICD-10 - M47.813) 01/07/2024 Other terminal superintendent (current) drug therapy (ICD-10 - Z79.899) 03/06/2024 Spondylosis without myelopathy or radiculopathy, lumbar region (ICD-10 - M47.816) 01/07/2024 Patient reports return of her thoracic axial pain, she reports worse with prolonged sitting, prolonged standing and standing slightly flexed. Diagnostic studies have demonstrated facet arthropathy in the posterior elements in the lower lumbar region as well as in the mid thoracic spine. Complains of tenderness with palpation. Despite HEP, pain medications, and limited activity. She responded very well with significant pain benefit from the last thoracic RFA in June 2023. She is requesting to schedule repeat RFA GHASSAN T8, T9, T10 at todays office visit for relief of thoracic axial pain. 07/06/2023 RFA GHASSAN T8, T9, T10 80% relief for 6 months 12/07/2023 - RFA GHASSAN L4, L5, S1 70% relief for 3 weeks Continue current regimen. She denies side effects to the prescribed regimen. RFA of Thoracic ordered. Continue HEP. Benjamín and SONALIS reviewed. Schedule to follow up in 2 months. 9DEC24 - Patient reports ongoing neck pain with functional deficits, she has responded well to her past thoracic and lumbar RFA injection with significant improved level of pain and function. She is requesting an increase in MED po, I recommended at this point a ITP trial if her current MED is not working well. Patient reports no side effects with the pain medications, and is doing the HEP. Most recentn BENJAMÍN and UDS reviewed. Will continue with current treatment including current medication regimen, HEP, and activity as tolerated. She declines intrathecal pain pump. Will Rx Lidoderm patch trial her her lower cervical, and back pain. Will inquired on the planned prior Rx of her TENS unit. Will need opinion from Dr. Alvarez regarding the po dosing of opioids in relation to patients request. 01/07/2024 Spondylosis without myelopathy or radiculopathy, lumbar region (ICD-10 - M47.816) 01/07/2024 Patient reports return of her thoracic axial pain, she reports worse with prolonged sitting, prolonged standing and standing slightly flexed. Diagnostic studies have demonstrated facet arthropathy in the posterior elements in the lower lumbar region as well as in the mid thoracic spine. Complains of tenderness with palpation. Despite HEP, pain medications, and limited activity. She responded very well with significant pain benefit from the last thoracic RFA in June 2023. She is requesting to schedule repeat RFA GHASSAN T8, T9, T10 at todays office visit for relief of thoracic axial pain. 07/06/2023 RFA GHASSAN T8, T9, T10 80% relief for 6 months 12/07/2023 - RFA GHASSAN L4, L5, S1 70% relief for 3 weeks Continue current regimen. She denies side effects to the prescribed regimen. RFA of Thoracic ordered. Continue HEP. Benjamín and UDS reviewed. Schedule to follow up in 2 months. 01/07/2024 Other terminal superintendent (current) drug therapy (ICD-10 - Z79.899) 01/07/2024 1) Refill oxycodone/APAP 10/325 mg TID 2) F/u in 2 months 3) S/P RFA GHASSAN L4,L5,S1 4) Schedule repeat GHASSAN RFA T8, T9, T10 5) Refer for tens unit- pending 01/07/2024 Patient reports return of her thoracic axial pain, she reports worse with prolonged sitting, prolonged standing and standing slightly flexed. Diagnostic studies have demonstrated facet arthropathy in the posterior elements in the lower lumbar region as well as in the mid thoracic spine. Complains of tenderness with palpation. Despite HEP, pain medications, and limited activity. She responded very well with significant pain benefit from the last thoracic RFA in June 2023. She is requesting to schedule repeat RFA GHASSAN T8, T9, T10 at todays office visit for relief of thoracic axial pain. 07/06/2023 RFA GHASSAN T8, T9, T10 80% relief for 6 months 12/07/2023 - RFA GHASSAN L4, L5, S1 70% relief for 3 weeks Continue current regimen. She denies side effects to the prescribed regimen. RFA of Thoracic ordered. Continue HEP. Benjamín and UDS reviewed. Schedule to follow up in 2 months. 12/07/2023 Other spondylosis with radiculopathy, lumbar region (ICD-10 - M47.26) 11/15/2023 Other terminal superintendent (current) drug therapy (ICD-10 - Z79.899) 11/15/2023 Spondylosis without myelopathy or radiculopathy, lumbar region (ICD-10 - M47.816) 09/16/2023 Ms. Alcantara returns today for office visit and medication refill. Her back pain is primarily axial in nature and is worse with prolonged sitting, prolonged standing and standing slightly flexed. Diagnostic studies have demonstrated facet arthropathy in the posterior elements in the lower lumbar region as well as in the mid thoracic spine. She benefited greatly from thoracic RFA about a year ago and we had repeat RFA at B/L T8, 9, 10 on 07/06/2023 which she says 'wore off in 2 weeks.' She continues on the Percocet 10/325 3 times daily. Benjamín and UDS were reviewed and are compliant and she denies any adverse side effects from her medication. Opioid risk assessment is moderate. Refill medications and RTC 2 months. [id number] - Patient reports return of her lumbar axial pain despite HEP, pain medications, and limited activity. She responded very well with significant pain benefit from the last lumbar RFA 6 months ago. She reports no side effects with her pain medications. Most recent BENJAMÍN report and UDS reviewed. Will refill her medications in the appropriate refill date, she requests increased dosing of her oxycodone, I recommended keeping the dosing the same and rely on the injection treatment for her increased LBP. Set her up for Bilateral Lumbar RFA at L4, L5, S2. However if her insurance requires repeat MBB then this would be conducted at the same levels. Sending out UDS for confirmation, in house + for hydrocodone and oxycodone. Will have patient undergo a TENS Unit trial and if beneficial purchase for permanent use. 11/15/2023 Other terminal superintendent (current) drug therapy (ICD-10 - Z79.899) November 15, 2023 1) Refill oxycodone/APAP 10/325 mg TID 2) F/u in 2 months 3) Schedule RFA GHASSAN L4,L5,S1 4) Refer for tens unit 09/16/2023 Ms. Alcantara returns today for office visit and medication refill. Her back pain is primarily axial in nature and is worse with prolonged sitting, prolonged standing and standing slightly flexed. Diagnostic studies have demonstrated facet arthropathy in the posterior elements in the lower lumbar region as well as in the mid thoracic spine. She benefited greatly from thoracic RFA about a year ago and we had repeat RFA at B/L T8, 9, 10 on 07/06/2023 which she says 'wore off in 2 weeks.' She continues on the Percocet 10/325 3 times daily. Benjamín and UDS were reviewed and are compliant and she denies any adverse side effects from her medication. Opioid risk assessment is moderate. Refill medications and RTC 2 months. [id number] - Patient reports return of her lumbar axial pain despite HEP, pain medications, and limited activity. She responded very well with significant pain benefit from the last lumbar RFA 6 months ago. She reports no side effects with her pain medications. Most recent BENJAMÍN report and UDS reviewed. Will refill her medications in the appropriate refill date, she requests increased dosing of her oxycodone, I recommended keeping the dosing the same and rely on the injection treatment for her increased LBP. Set her up for Bilateral Lumbar RFA at L4, L5, S2. However if her insurance requires repeat MBB then this would be conducted at the same levels. Sending out UDS for confirmation, in house + for hydrocodone and oxycodone. Will have patient undergo a TENS Unit trial and if beneficial purchase for permanent use. 11/11/2023 Other terminal superintendent (current) drug therapy (ICD-10 - Z79.899) 11/15/2023 Other spondylosis, cervical region (ICD-10 - M47.892) 09/16/2023 Ms. Alcantara returns today for office visit and medication refill. Her back pain is primarily axial in nature and is worse with prolonged sitting, prolonged standing and standing slightly flexed. Diagnostic studies have demonstrated facet arthropathy in the posterior elements in the lower lumbar region as well as in the mid thoracic spine. She benefited greatly from thoracic RFA about a year ago and we had repeat RFA at B/L T8, 9, 10 on 07/06/2023 which she says 'wore off in 2 weeks.' She continues on the Percocet 10/325 3 times daily. Benjamín and UDS were reviewed and are compliant and she denies any adverse side effects from her medication. Opioid risk assessment is moderate. Refill medications and RTC 2 months. [id number] - Patient reports return of her lumbar axial pain despite HEP, pain medications, and limited activity. She responded very well with significant pain benefit from the last lumbar RFA 6 months ago. She reports no side effects with her pain medications. Most recent BENJAMÍN report and UDS reviewed. Will refill her medications in the appropriate refill date, she requests increased dosing of her oxycodone, I recommended keeping the dosing the same and rely on the injection treatment for her increased LBP. Set her up for Bilateral Lumbar RFA at L4, L5, S2. However if her insurance requires repeat MBB then this would be conducted at the same levels. Sending out UDS for confirmation, in house + for hydrocodone and oxycodone. Will have patient undergo a TENS Unit trial and if beneficial purchase for permanent use. 01/07/2024 Other spondylosis, cervical region (ICD-10 - M47.892) 01/07/2024 Patient reports return of her thoracic axial pain, she reports worse with prolonged sitting, prolonged standing and standing slightly flexed. Diagnostic studies have demonstrated facet arthropathy in the posterior elements in the lower lumbar region as well as in the mid thoracic spine. Complains of tenderness with palpation. Despite HEP, pain medications, and limited activity. She responded very well with significant pain benefit from the last thoracic RFA in June 2023. She is requesting to schedule repeat RFA GHASSAN T8, T9, T10 at todays office visit for relief of thoracic axial pain. 07/06/2023 RFA GHASSAN T8, T9, T10 80% relief for 6 months 12/07/2023 - RFA GHASSAN L4, L5, S1 70% relief for 3 weeks Continue current regimen. She denies side effects to the prescribed regimen. RFA of Thoracic ordered. Continue HEP. Benjamín and UDS reviewed. Schedule to follow up in 2 months. 03/06/2024 Other spondylosis, cervical region (ICD-10 - M47.892) 01/07/2024 Patient reports return of her thoracic axial pain, she reports worse with prolonged sitting, prolonged standing and standing slightly flexed. Diagnostic studies have demonstrated facet arthropathy in the posterior elements in the lower lumbar region as well as in the mid thoracic spine. Complains of tenderness with palpation. Despite HEP, pain medications, and limited activity. She responded very well with significant pain benefit from the last thoracic RFA in June 2023. She is requesting to schedule repeat RFA GHASSAN T8, T9, T10 at todays office visit for relief of thoracic axial pain. 07/06/2023 RFA GHASSAN T8, T9, T10 80% relief for 6 months 12/07/2023 - RFA GHASSAN L4, L5, S1 70% relief for 3 weeks Continue current regimen. She denies side effects to the prescribed regimen. RFA of Thoracic ordered. Continue HEP. Benjamín and RISSA reviewed. Schedule to follow up in 2 months. [id number] - Patient reports ongoing neck pain with functional deficits, she has responded well to her past thoracic and lumbar RFA injection with significant improved level of pain and function. She is requesting an increase in MED po, I recommended at this point a ITP trial if her current MED is not working well. Patient reports no side effects with the pain medications, and is doing the HEP. Most recentn BENJAMÍN and RISSA reviewed. Will continue with current treatment including current medication regimen, HEP, and activity as tolerated. She declines intrathecal pain pump. Will Rx Lidoderm patch trial her her lower cervical, and back pain. Will inquired on the planned prior Rx of her TENS unit. Will need opinion from Dr. Alvraez regarding the po dosing of opioids in relation to patients request. 05/01/2024 Other spondylosis, cervical region (ICD-10 - M47.892) 05/01/24 The patient presents to the [facility] office in [place], [place] for an telemedicine visit. The patient was evaluated by the medical grade shoemaker and a urine drug screen was obtained as well as vital signs. Patient consented to telemed visit. Patient is a 48 yo female who presents back to the clinic today for follow-up evaluation/treat ment of chronic low back and midback pain. Low back pain is axial in nature and worsens with facet loading. Status post RFA GHASSAN L4-S1 with 70% relief ongoing. Will order repeat RFA GHASSAN L4-S1 as this injection allows her to complete ADLs easier if completed every 6 months. Thoracic spine pain is axial in nature and worsens with facet loading. Denies radiculopathy. Status post RFA GHASSAN T8-10 with 80% relief ongoing. She continues a HEP as tolerated. She also utilizes heat, ice, and topicals for additional relief. RTC in 2 months or sooner if needed. 06/26/2024 Other spondylosis, cervical region (ICD-10 - M47.892) 06/26/2024 Patient is a 48 yo female who presents back to the clinic today for follow-up evaluation/treat ment of chronic low back and midback pain. [...] in 2 months or sooner if needed. 08/18/2024 Other spondylosis, cervical region (ICD-10 - M47.892) August 18, 2024: The patient presents to the [facility] office in [facility] for an audiovisual-tele medicine visit. The patient was evaluated by the medical grade shoemaker and a urine drug screen was obtained as well as vital signs. Portions of the physical examination were assisted by the medical grade shoemaker during the audiovisual-tele medicine visit August 18, 2024: Basilia is a [...] back to the clinic today for follow-up evaluation/treat ment of chronic low back and midback pain. [...] 18, 2024: The patient presents to the [facility] office in [facility] for an audiovisual-tele medicine visit. The patient was evaluated by the medical grade shoemaker and a urine drug screen was obtained as well as vital signs. Portions of the physical examination were assisted by the medical grade shoemaker during the audiovisual-tele medicine visit August 18, 2024: Basilia is a [...] continues to take oxycodone and gabapentin. The Benjamní and urine drug screens were reviewed. The patient says that she can call the spine surgeon that did the neck surgery for an evaluation and I encouraged her to do that. In the meantime we will get the MRI scans and recheck for any changes in pathology. Patient is a 48 yo female who presents back to the clinic today for follow-up evaluation/treat ment of chronic low back and midback pain. [...] 18, 2024: The patient presents to the [facility] office in [facility] for an audiovisual-tele medicine visit. The patient was evaluated by the medical grade shoemaker and a urine drug screen was obtained as well as vital signs. Portions of the physical examination were assisted by the medical grade shoemaker during the audiovisual-tele medicine visit August 18, 2024: Basilia is a [...] back to the clinic today for follow-up evaluation/treat ment of chronic low back and midback pain. [...] in 2 months or sooner if needed. 08/18/2024 Pain in thoracic spine (ICD-10 - M54.6) August 18, 2024: The patient presents to the [facility] office in [facility] for an audiovisual-tele medicine visit. The patient was evaluated by the medical grade shoemaker and a urine drug screen was obtained as well as vital signs. Portions of the physical examination were assisted by the medical grade shoemaker during the audiovisual-tele medicine visit August 18, 2024: Basilia is a [...] back to the clinic today for follow-up evaluation/treat ment of chronic low back and midback pain. [...] in 2 months or sooner if needed. 06/26/2024 Pain in thoracic spine (ICD-10 - M54.6) 06/26/2024 Patient is a 48 yo female who presents back to the clinic today for follow-up evaluation/treat ment of chronic low back and midback pain. [...] in 2 months or sooner if needed. 05/01/2024 Pain in thoracic spine (ICD-10 - M54.6) 05/01/24 The patient presents to the [facility] office in [place], [place] for an telemedicine visit. The patient was evaluated by the medical grade shoemaker and a urine drug screen was obtained as well as vital signs. Patient consented to telemed visit. Patient is a 48 yo female who presents back to the clinic today for follow-up evaluation/treat ment of chronic low back and midback pain. Low back pain is axial in nature and worsens with facet loading. Status post RFA GHASSAN L4-S1 with 70% relief ongoing. Will order repeat RFA GHASSAN L4-S1 as this injection allows her to complete ADLs easier if completed every 6 months. Thoracic spine pain is axial in nature and worsens with facet loading. Denies radiculopathy. Status post RFA GHASSAN T8-10 with 80% relief ongoing. She continues a HEP as tolerated. She also utilizes heat, ice, and topicals for additional relief. RTC in 2 months or sooner if needed. 03/06/2024 Pain in thoracic spine (ICD-10 - M54.6) 01/07/2024 Patient reports return of her thoracic axial pain, she reports worse with prolonged sitting, prolonged standing and standing slightly flexed. Diagnostic studies have demonstrated facet arthropathy in the posterior elements in the lower lumbar region as well as in the mid thoracic spine. Complains of tenderness with palpation. Despite HEP, pain medications, and limited activity. She responded very well with significant pain benefit from the last thoracic RFA in June 2023. She is requesting to schedule repeat RFA GHASSAN T8, T9, T10 at todays office visit for relief of thoracic axial pain. 07/06/2023 RFA GHASSAN T8, T9, T10 80% relief for 6 months 12/07/2023 - RFA GHASSAN L4, L5, S1 70% relief for 3 weeks Continue current regimen. She denies side effects to the prescribed regimen. RFA of Thoracic ordered. Continue HEP. Benjamín and RISSA reviewed. Schedule to follow up in 2 months. [id number] - Patient reports ongoing neck pain with functional deficits, she has responded well to her past thoracic and lumbar RFA injection with significant improved level of pain and function. She is requesting an increase in MED po, I recommended at this point a ITP trial if her current MED is not working well. Patient reports no side effects with the pain medications, and is doing the HEP. Most recentn BENJAMÍN and UDS reviewed. Will continue with current treatment including current medication regimen, HEP, and activity as tolerated. She declines intrathecal pain pump. Will Rx Lidoderm patch trial her her lower cervical, and back pain. Will inquired on the planned prior Rx of her TENS unit. Will need opinion from Dr. Alvarez regarding the po dosing of opioids in relation to patients request. 01/07/2024 Pain in thoracic spine (ICD-10 - M54.6) 01/07/2024 Patient reports return of her thoracic axial pain, she reports worse with prolonged sitting, prolonged standing and standing slightly flexed. Diagnostic studies have demonstrated facet arthropathy in the posterior elements in the lower lumbar region as well as in the mid thoracic spine. Complains of tenderness with palpation. Despite HEP, pain medications, and limited activity. She responded very well with significant pain benefit from the last thoracic RFA in June 2023. She is requesting to schedule repeat RFA GHASSAN T8, T9, T10 at todays office visit for relief of thoracic axial pain. 07/06/2023 RFA GHASSAN T8, T9, T10 80% relief for 6 months 12/07/2023 - RFA GHASSAN L4, L5, S1 70% relief for 3 weeks Continue current regimen. She denies side effects to the prescribed regimen. RFA of Thoracic ordered. Continue HEP. Benjamín and RISSA reviewed. Schedule to follow up in 2 months. 11/15/2023 Pain in thoracic spine (ICD-10 - M54.6) 09/16/2023 Ms. Alcantara returns today for office visit and medication refill. Her back pain is primarily axial in nature and is worse with prolonged sitting, prolonged standing and standing slightly flexed. Diagnostic studies have demonstrated facet arthropathy in the posterior elements in the lower lumbar region as well as in the mid thoracic spine. She benefited greatly from thoracic RFA about a year ago and we had repeat RFA at B/L T8, 9, 10 on 07/06/2023 which she says 'wore off in 2 weeks.' She continues on the Percocet 10/325 3 times daily. Benjamín and SONALIS were reviewed and are compliant and she denies any adverse side effects from her medication. Opioid risk assessment is moderate. Refill medications and RTC 2 months. - Patient reports return of her lumbar axial pain despite HEP, pain medications, and limited activity. She responded very well with significant pain benefit from the last lumbar RFA 6 months ago. She reports no side effects with her pain medications. Most recent BENJAMÍN report and UDS reviewed. Will refill her medications in the appropriate refill date, she requests increased dosing of her oxycodone, I recommended keeping the dosing the same and rely on the injection treatment for her increased LBP. Set her up for Bilateral Lumbar RFA at L4, L5, S2. However if her insurance requires repeat MBB then this would be conducted at the same levels. Sending out UDS for confirmation, in house + for hydrocodone and oxycodone. Will have patient undergo a TENS Unit trial and if beneficial purchase for permanent use. 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 Diagnostic studies have demonstrated facet arthropathy in the posterior elements in the lower lumbar region as well as in the mid thoracic spine. Complains of tenderness with palpation. Despite HEP, pain medications, and limited activity. She responded very well with significant pain benefit from the last thoracic RFA in June 2023. She is requesting to schedule repeat RFA GHASSAN T8, T9, T10 at todays office visit for relief of thoracic axial pain. 07/06/2023 RFA GHASSAN T8, T9, T10 80% relief for 6 months 12/07/2023 - RFA GHASSAN L4, L5, S1 70% relief for 3 weeks Continue current regimen. She denies side effects to the prescribed regimen. RFA of Thoracic ordered. Continue HEP. Benjamín and UDS reviewed. Schedule to follow up in 2 months. 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 Alcantara returns today for office visit and medication refill. Her back pain is primarily axial in nature and is worse with prolonged sitting, prolonged standing and standing slightly flexed. Diagnostic studies have demonstrated facet arthropathy in the posterior elements in the lower lumbar region as well as in the mid thoracic spine. She benefited greatly from thoracic RFA about a year ago and we had repeat RFA at B/L T8, 9, 10 on 07/06/2023 which she says 'wore off in 2 weeks.' She continues on the Percocet 10/325 3 times daily. Benjamín and UDS were reviewed and are compliant and she denies any adverse side effects from her medication. Opioid risk assessment is moderate. Refill medications and RTC 2 months. [id number] - Patient reports return of her lumbar axial pain despite HEP, pain medications, and limited activity. She responded very well with significant pain benefit from the last lumbar RFA 6 months ago. She reports no side effects with her pain medications. Most recent BENJAMÍN report and UDS reviewed. Will refill her medications in the appropriate refill date, she requests increased dosing of her oxycodone, I recommended keeping the dosing the same and rely on the injection treatment for her increased LBP. Set her up for Bilateral Lumbar RFA at L4, L5, S2. However if her insurance requires repeat MBB then this would be conducted at the same levels. Sending out UDS for confirmation, in house + for hydrocodone and oxycodone. Will have patient undergo a TENS Unit trial and if beneficial purchase for permanent use. 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 Diagnostic studies have demonstrated facet arthropathy in the posterior elements in the lower lumbar region as well as in the mid thoracic spine. Complains of tenderness with palpation. Despite HEP, pain medications, and limited activity. She responded very well with significant pain benefit from the last thoracic RFA in June 2023. She is requesting to schedule repeat RFA GHASSAN T8, T9, T10 at todays office visit for relief of thoracic axial pain. 07/06/2023 RFA GHASSAN T8, T9, T10 80% relief for 6 months 12/07/2023 - RFA GHASSAN L4, L5, S1 70% relief for 3 weeks Continue current regimen. She denies side effects to the prescribed regimen. RFA of Thoracic ordered. Continue HEP. Benjamín and UDS reviewed. Schedule to follow up in 2 months. [id number] - Patient reports ongoing neck pain with functional deficits, she has responded well to her past thoracic and lumbar RFA injection with significant improved level of pain and function. She is requesting an increase in MED po, I recommended at this point a ITP trial if her current MED is not working well. Patient reports no side effects with the pain medications, and is doing the HEP. Most recentn BENJAMÍN and RISSA reviewed. Will continue with current treatment including current medication regimen, HEP, and activity as tolerated. She declines intrathecal pain pump. Will Rx Lidoderm patch trial her her lower cervical, and back pain. Will inquired on the planned prior Rx of her TENS unit. Will need opinion from Dr. Alvarez regarding the po dosing of opioids in relation to patients request. 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 office in [place], [place] for an telemedicine visit. The patient was evaluated by the medical grade shoemaker and a urine drug screen was obtained as well as vital signs. Patient consented to telemed visit. Patient is a 48 yo female who presents back to the clinic today for follow-up evaluation/treat ment of chronic low back and midback pain. Low back pain is axial in nature and worsens with facet loading. Status post RFA GHASSAN L4-S1 with 70% relief ongoing. Will order repeat RFA GHASSAN L4-S1 as this injection allows her to complete ADLs easier if completed every 6 months. Thoracic spine pain is axial in nature and worsens with facet loading. Denies radiculopathy. Status post RFA GHASSAN T8-10 with 80% relief ongoing. She continues a HEP as tolerated. She also utilizes heat, ice, and topicals for additional relief. RTC in 2 months or sooner if needed. 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 [...] 18, 2024: The patient presents to the [facility] office in [facility] for an audiovisual-tele medicine visit. The patient was evaluated by the medical grade shoemaker and a urine drug screen was obtained as well as vital signs. Portions of the physical examination were assisted by the medical grade shoemaker during the audiovisual-tele medicine visit August 18, 2024: Basilia is a [...] back to the clinic today for follow-up evaluation/treat ment of chronic low back and midback pain. [...] in 2 months or sooner if needed. 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 office in [facility] for an audiovisual-tele medicine visit. The patient was evaluated by the medical grade shoemaker and a urine drug screen was obtained as well as vital signs. Portions of the physical examination were assisted by the medical grade shoemaker during the audiovisual-tele medicine visit August 18, 2024: Basilia is a [...] back to the clinic today for follow-up evaluation/treat ment of chronic low back and midback pain. [...] 18, 2024: The patient presents to the [facility] office in [facility] for an audiovisual-tele medicine visit. The patient was evaluated by the medical grade shoemaker and a urine drug screen was obtained as well as vital signs. Portions of the physical examination were assisted by the medical grade shoemaker during the audiovisual-tele medicine visit August 18, 2024: Basilia is a [...] back to the clinic today for follow-up evaluation/treat ment of chronic low back and midback pain. [...] in 2 months or sooner if needed. 08/18/2024 Unilateral primary osteoarthritis, unspecified knee (ICD-10 - M17.10) August 18, 2024: The patient presents to the [facility] office in [facility] for an audiovisual-tele medicine visit. The patient was evaluated by the medical grade shoemaker and a urine drug screen was obtained as well as vital signs. Portions of the physical examination were assisted by the medical grade shoemaker during the audiovisual-tele medicine visit August 18, 2024: Basilia is a [...] back to the clinic today for follow-up evaluation/treat ment of chronic low back and midback pain. [...] in 2 months or sooner if needed. 06/26/2024 Unilateral primary osteoarthritis, unspecified knee (ICD-10 - M17.10) 06/26/2024 Patient is a 48 yo female who presents back to the clinic today for follow-up evaluation/treat ment of chronic low back and midback pain. [...] in 2 months or sooner if needed. 05/01/2024 Unilateral primary osteoarthritis, unspecified knee (ICD-10 - M17.10) 05/01/24 The patient presents to the [facility] office in [place], [place] for an telemedicine visit. The patient was evaluated by the medical grade shoemaker and a urine drug screen was obtained as well as vital signs. Patient consented to telemed visit. Patient is a 48 yo female who presents back to the clinic today for follow-up evaluation/treat ment of chronic low back and midback pain. Low back pain is axial in nature and worsens with facet loading. Status post RFA GHASSAN L4-S1 with 70% relief ongoing. Will order repeat RFA GHASSAN L4-S1 as this injection allows her to complete ADLs easier if completed every 6 months. Thoracic spine pain is axial in nature and worsens with facet loading. Denies radiculopathy. Status post RFA GHASSAN T8-10 with 80% relief ongoing. She continues a HEP as tolerated. She also utilizes heat, ice, and topicals for additional relief. RTC in 2 months or sooner if needed. 03/06/2024 Unilateral primary osteoarthritis, unspecified knee (ICD-10 - M17.10) 01/07/2024 Patient reports return of her thoracic axial pain, she reports worse with prolonged sitting, prolonged standing and standing slightly flexed. Diagnostic studies have demonstrated facet arthropathy in the posterior elements in the lower lumbar region as well as in the mid thoracic spine. Complains of tenderness with palpation. Despite HEP, pain medications, and limited activity. She responded very well with significant pain benefit from the last thoracic RFA in June 2023. She is requesting to schedule repeat RFA GHASSAN T8, T9, T10 at todays office visit for relief of thoracic axial pain. 07/06/2023 RFA GHASSAN T8, T9, T10 80% relief for 6 months 12/07/2023 - RFA GHASSAN L4, L5, S1 70% relief for 3 weeks Continue current regimen. She denies side effects to the prescribed regimen. RFA of Thoracic ordered. Continue HEP. Benjamín and RISSA reviewed. Schedule to follow up in 2 months. [id number] - Patient reports ongoing neck pain with functional deficits, she has responded well to her past thoracic and lumbar RFA injection with significant improved level of pain and function. She is requesting an increase in MED po, I recommended at this point a ITP trial if her current MED is not working well. Patient reports no side effects with the pain medications, and is doing the HEP. Most recentn BENJAMÍN and RISSA reviewed. Will continue with current treatment including current medication regimen, HEP, and activity as tolerated. She declines intrathecal pain pump. Will Rx Lidoderm patch trial her her lower cervical, and back pain. Will inquired on the planned prior Rx of her TENS unit. Will need opinion from Dr. Alvarez regarding the po dosing of opioids in relation to patients request. 01/07/2024 Unilateral primary osteoarthritis, unspecified knee (ICD-10 - M17.10) 01/07/2024 Patient reports return of her thoracic axial pain, she reports worse with prolonged sitting, prolonged standing and standing slightly flexed. Diagnostic studies have demonstrated facet arthropathy in the posterior elements in the lower lumbar region as well as in the mid thoracic spine. Complains of tenderness with palpation. Despite HEP, pain medications, and limited activity. She responded very well with significant pain benefit from the last thoracic RFA in June 2023. She is requesting to schedule repeat RFA GHASSAN T8, T9, T10 at todays office visit for relief of thoracic axial pain. 07/06/2023 RFA GHASSAN T8, T9, T10 80% relief for 6 months 12/07/2023 - RFA GHASSAN L4, L5, S1 70% relief for 3 weeks Continue current regimen. She denies side effects to the prescribed regimen. RFA of Thoracic ordered. Continue HEP. Benjamín and UDS reviewed. Schedule to follow up in 2 months. 11/15/2023 Unilateral primary osteoarthritis, unspecified knee (ICD-10 - M17.10) 09/16/2023 Ms. Alcantara returns today for office visit and medication refill. Her back pain is primarily axial in nature and is worse with prolonged sitting, prolonged standing and standing slightly flexed. Diagnostic studies have demonstrated facet arthropathy in the posterior elements in the lower lumbar region as well as in the mid thoracic spine. She benefited greatly from thoracic RFA about a year ago and we had repeat RFA at B/L T8, 9, 10 on 07/06/2023 which she says 'wore off in 2 weeks.' She continues on the Percocet 10/325 3 times daily. Benjamín and UDS were reviewed and are compliant and she denies any adverse side effects from her medication. Opioid risk assessment is moderate. Refill medications and RTC 2 months. [id number] - Patient reports return of her lumbar axial pain despite HEP, pain medications, and limited activity. She responded very well with significant pain benefit from the last lumbar RFA 6 months ago. She reports no side effects with her pain medications. Most recent BENJAMÍN report and UDS reviewed. Will refill her medications in the appropriate refill date, she requests increased dosing of her oxycodone, I recommended keeping the dosing the same and rely on the injection treatment for her increased LBP. Set her up for Bilateral Lumbar RFA at L4, L5, S2. However if her insurance requires repeat MBB then this would be conducted at the same levels. Sending out UDS for confirmation, in house + for hydrocodone and oxycodone. Will have patient undergo a TENS Unit trial and if beneficial purchase for permanent use. 05/01/2024 Other spondylosis with radiculopathy, cervical region (ICD-10 - M47.22) 05/01/24 The patient presents to the [facility] office in [place], [place] for an telemedicine visit. The patient was evaluated by the medical grade shoemaker and a urine drug screen was obtained as well as vital signs. Patient consented to telemed visit. Patient is a 48 yo female who presents back to the clinic today for follow-up evaluation/treat ment of chronic low back and midback pain. Low back pain is axial in nature and worsens with facet loading. Status post RFA GHASSAN L4-S1 with 70% relief ongoing. Will order repeat RFA GHASSAN L4-S1 as this injection allows her to complete ADLs easier if completed every 6 months. Thoracic spine pain is axial in nature and worsens with facet loading. Denies radiculopathy. Status post RFA GAHSSAN T8-10 with 80% relief ongoing. She continues a HEP as tolerated. She also utilizes heat, ice, and topicals for additional relief. RTC in 2 months or sooner if needed. 06/26/2024 Other spondylosis with radiculopathy, cervical region (ICD-10 - M47.22) 06/26/2024 Patient is a 48 yo female who presents back to the clinic today for follow-up evaluation/treat ment of chronic low back and midback pain. [...] in 2 months or sooner if needed. 08/18/2024 Other spondylosis with radiculopathy, cervical region (ICD-10 - M47.22) August 18, 2024: The patient presents to the [facility] office in [facility] for an audiovisual-tele medicine visit. The patient was evaluated by the medical grade shoemaker and a urine drug screen was obtained as well as vital signs. Portions of the physical examination were assisted by the medical grade shoemaker during the audiovisual-tele medicine visit August 18, 2024: Basilia is a [...] back to the clinic today for follow-up evaluation/treat ment of chronic low back and midback pain. [...] to the [facility] office in [facility] for an audiovisual-tele medicine visit. The patient was evaluated by the medical grade shoemaker and a urine drug screen was obtained as well as vital signs. Portions of the physical examination were assisted by the medical grade shoemaker during the audiovisual-tele medicine visit August 18, 2024: Basilia is a [...] back to the clinic today for follow-up evaluation/treat ment of chronic low back and midback pain. [...] 18, 2024: The patient presents to the [facility] office in [facility] for an audiovisual-tele medicine visit. The patient was evaluated by the medical grade shoemaker and a urine drug screen was obtained as well as vital signs. Portions of the physical examination were assisted by the medical grade shoemaker during the audiovisual-tele medicine visit August 18, 2024: Basilia is a [...] back to the clinic today for follow-up evaluation/treat ment of chronic low back and midback pain. [...] in 2 months or sooner if needed. 08/18/2024 Radiculopathy, lumbar region (ICD-10 - M54.16) August 18, 2024: The patient presents to the [facility] office in [facility] for an audiovisual-tele medicine visit. The patient was evaluated by the medical grade shoemaker and a urine drug screen was obtained as well as vital signs. Portions of the physical examination were assisted by the medical grade shoemaker during the audiovisual-tele medicine visit August 18, 2024: Basilia is a [...] back to the clinic today for follow-up evaluation/treat ment of chronic low back and midback pain. [...] in 2 months or sooner if needed. 06/26/2024 Radiculopathy, lumbar region (ICD-10 - M54.16) 06/26/2024 Patient is a 48 yo female who presents back to the clinic today for follow-up evaluation/treat ment of chronic low back and midback pain. [...] in 2 months or sooner if needed. 05/01/2024 Radiculopathy, lumbar region (ICD-10 - M54.16) 05/01/24 The patient presents to the [facility] office in [place], [place] for an telemedicine visit. The patient was evaluated by the medical grade shoemaker and a urine drug screen was obtained as well as vital signs. Patient consented to telemed visit. Patient is a 48 yo female who presents back to the clinic today for follow-up evaluation/treat ment of chronic low back and midback pain. Low back pain is axial in nature and worsens with facet loading. Status post RFA GHASSAN L4-S1 with 70% relief ongoing. Will order repeat RFA GHASSAN L4-S1 as this injection allows her to complete ADLs easier if completed every 6 months. Thoracic spine pain is axial in nature and worsens with facet loading. Denies radiculopathy. Status post RFA GHASSAN T8-10 with 80% relief ongoing. She continues a HEP as tolerated. She also utilizes heat, ice, and topicals for additional relief. RTC in 2 months or sooner if needed. 10/11/2024 Radiculopathy, lumbar region (ICD-10 - M54.16) August 18, 2024: The patient presents to the [facility] office in [facility] for an audiovisual-tele medicine visit. The patient was evaluated by the medical grade shoemaker and a urine drug screen was obtained as well as vital signs. Portions of the physical examination were assisted by the medical grade shoemaker during the audiovisual-tele medicine visit August 18, 2024: Basilia is a [...] back to the clinic today for follow-up evaluation/treat ment of chronic low back and midback pain. [...] or sooner if needed. Plan Of Treatment Pending Test Test Name Order Date Urine Test LCSD Definitive 10/11/2024 Next Appt Details Provider Name:Kevon vidal, 12/07/2024 10:30:00 AM, [address], [facility], [address], [place], [address], Provider Name:Kevon vidal, 12/25/2024 10:00:00 AM, [address], [address], [place], [address], Insurance Providers Payer Name Payer Address Payer Phone Subscriber Number Group Number Insured Name Patient Relationship to Insured Coverage Start Date Coverage End Date [employer] [address] [address] [place] [address] [id number] Basilia Alcantara Self - patient is the insured 2 Medical (General) History Medical History History ICD Code vitamin d deficiency diagnosed 1998 altaf ged by GERD diagnosed [address] Beth aft hypothyroidism diagnosed 2014, managed b y Dr. Soto Surgical History Surgery Date(Month/Year) / [facility]/ doctor unknown / 3 night stay 2005 ankle/ [facility]/ doctor unknown/ 7 d ay stay 2012 cholecystectomy/ [facility]/ doctor un known/ 1 night stay 2007 appendectomy/ [facility]/ doctor unkn own/ 3 night stay 1993 thyroidectomy/ [facility]/ doctor unk nown/ 2 night stay 2008 open heart/ [facility] / doctor unkno wn/ 14 day stay 2012 stomach/ [facility]/ doctor unknown / 5 day stay 2013 Hospitalization History Reason Date(Month/Year) Erlinda Jimenez EKG showed low heart rate pt also had low magnesium and potassium overnight stay 05/2024
[2024-10-20] MEDS: IOPAMIDOL-370 (76%);100ML BOTTLE 160 ML IV (04:49)
[2024-10-20] MEDS: SODIUM CHLORIDE 0.9% 10ML SYR (RAD ONLY) 10 ML IV (04:49)
[2024-10-20] MEDS: 0.9 % SODIUM CHLORIDE 50 ML VIAL IV (04:49)
[2024-10-20 04:54] LABS: INR 1.07 (0.9-1.1); Prothrombin Time 11.8 seconds (10.1-12.5)
[2024-10-20 05:00] LABS: Hematocrit 30.6 % (37.0-47.0); Hemoglobin 10.6 g/dL (12.2-16.2); Immature Granulocytes % 0.4 %; Mean Corpuscular HGB Conc 34.6 g/dL (31.8-35.4); Mean Corpuscular Hemoglobin 30.0 pg (27.0-31.2); Mean Corpuscular Volume 86.7 fl (81-99); Nucleated Red Blood Cells % 0 %; Platelet Count 135 K/mm3 (142-424); Red Blood Count 3.53 M/mm3 (4.20-5.40); Red Cell Distribution Width-SD 39.6 fL; White Blood Count 6.8 K/mm3 (4.8-10.8)
--- NOTE | 2024-10-20 05:00 | PC.NURSE ---
Dr. Stanley wants to hold antibiotics until he attempts lumbar puncture.
[2024-10-20] MEDS: 0.9 % SODIUM CHLORIDE 1000ML 1,000 ML 999 ML IV (05:01)
[2024-10-20 05:08] LABS: Microscopic, Urine URINE MICROSCOPIC (MICROSCOPIC)
[2024-10-20 05:09] LABS: Chloride 101 mmol/L (98-107)
[2024-10-20 05:09] LABS: Bilirubin,Urine Negative (Negative); Color,Urine YELLOW (Yellow); Glucose,Urine (UA) Negative (Negative); Ketones,Urine Negative (Negative); Leukocyte Esterase,Urine Negative (Negative); PH,Urine 5.5 (5.0-8.5); Protein,Urine Negative (Negative); Specific Gravity, Urine 1.015 (1.005-1.030); Urobilinogen,Urine 0.2 EU/dl (0.2)
[2024-10-20 05:10] LABS: Albumin Level 2.3 g/dl (3.5-5.0); Sodium 129 mmol/L (136-145)
[2024-10-20 05:12] LABS: Alanine Aminotransferase 15 U/L (12-78); Aspartate Amino Transferase 24 U/L (14-36); Blood Urea Nitrogen 14 mg/dl (7-17); Creatinine Clearance Estimated 95 mL/min (50-200); Creatinine,Serum 0.90 mg/dl (0.52-1.04); Estimated Glomerular Filt Rate 66 ml/min (>60); GFR (African American) 80 ML/MIN (>60)
[2024-10-20 05:13] LABS: Albumin/Globulin Ratio 0.9 (1.1-1.8); Alkaline Phosphatase 55 U/L (38-126); Anion Gap 6.5 mEq/L (5-15); Bilirubin,Total 0.2 mg/dl (0.2-1.3); Calcium 7.0 mg/dl (8.4-10.2); Carbon Dioxide 24 mmol/L (22.0-30.0); Globulin 2.6 g/dL (1.3-3.2); Glucose 93 mg/dl (74-100); Lipase 43 U/L (23-300); Total Protein,Serum 4.9 g/dl (6.3-8.2)
[2024-10-20 05:14] LABS: Magnesium 1.7 mg/dl (1.6-2.3)
[2024-10-20 05:22] LABS: Barbiturates Screen,Urine Negative ng/ml (<200); Benzodiazepines Screen,Urine Negative ng/ml (<200)
[2024-10-20 05:23] LABS: Amphetamine/Metha Screen,Urine Negative ng/ml (<1000)
[2024-10-20 05:24] LABS: NT Pro Brain Natriuretic Pep. 274 pg/mL (0-125)
[2024-10-20 05:24] LABS: Methadone Screen,Urine Negative ng/ml (<300)
[2024-10-20 05:26] LABS: Opiate Screen,Urine Negative ng/ml (<300); Phencyclidine Screen,Urine Negative ng/ml (<25)
[2024-10-20 05:28] LABS: Bacteria,Urine 1+ /lpf; Mucus,Urine 1+ /lpf
[2024-10-20 05:29] LABS: Acetaminophen < 10 ug/ml (10-30); Salicylate < 1.0 mg/dL (2.0-20.0); Troponin I < 0.01 ng/ml (0.00-0.034)
[2024-10-20 05:30] LABS: Potassium 2.5 mmoL/L (3.5-5.1); T4 (Thyroxine) 6.8 ug/dl (5.53-11.0)
--- NOTE | 2024-10-20 05:31 | PC.NURSE ---
critical result received from lab. Patient K+ 2.5. aware
[2024-10-20 05:44] LABS: Thyroid Stimulating Hormone < 0.02 uIU/mL (0.465-4.68)
[2024-10-20] MEDS: MAGNESIUM SULFATE IN WATER 2 GM/50 ML PIGGYBACK IV (05:45)
[2024-10-20] MEDS: CALCIUM GLUC IN NACL, ISO-OSM 1 GM/50 ML BAG IV (06:13)
[2024-10-20] MEDS: VANCOMYCIN CONSULT REQUEST 1 EACH NOTAPPLIC ×2 (06:14→09:00)
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
--- NOTE | 2024-10-20 07:08 | PC.NURSE ---
Pt arrived to ICU @0647 from ED
[2024-10-20 07:28] LABS: Tube Number: Tube 1
[2024-10-20 07:44] LABS: Volume,CSF 8 mL
[2024-10-20] MEDS: LACTATED RINGERS 1000ML 1,000 ML 100 ML IV (07:44)
[2024-10-20 07:45] LABS: Red Blood Cell,CSF 0 cells/uL (0); Tube Number: Tube 3; White Blood Cell,CSF 7 cells/uL (0-5)
[2024-10-20 07:54] LABS: Troponin I < 0.01 ng/ml (0.00-0.034)
--- NOTE | 2024-10-20 08:08 | EXP.PHA.CONS ---
Pharmacy Consult Date: 10/20/24 Time: 08:09 Referring provider: DR VILLALTA Reason for Consult:: VANCOMYCIN DOSING CONSULT Allergies Allergy/AdvReac Type Severity Reaction Status Date / Time ketorolac (From Toradol) AdvReac Mild Rash Verified 10/20/24 07:11 doxycycline AdvReac Rash Verified 10/20/24 07:11 tramadol AdvReac Rash Verified 10/20/24 07:11 Home Medications ?Medication ?Instructions ?Recorded ?Confirmed ?Type Unobtainable 10/20/24 10/20/24 History New Prescriptions to Start Prescriptions: Height: 1.65 m Weight: 69.899 kg Laboratory Results:: Laboratory Results - last 24 hr 10/20/24 04:15: WBC 6.8, RBC 3.53 L, Hgb 10.6 L, Hct 30.6 L, MCV 86.7, MCH 30.0, MCHC 34.6, RDW 12.7, Plt Count 135 L, MPV 10.1, Neut % (Auto) 58.3, Lymph % (Auto) 30.6, [place] % (Auto) 9.4 H, Eos % (Auto) 1.0, Baso % (Auto) 0.3, Neut # (Auto) 4.0, Lymph # (Auto) 2.1, Clinch # (Auto) 0.6, Eos # (Auto) 0.1, Baso # (Auto) 0.0, PT 11.8, INR 1.07, VBG pH 7.43 H, VBG pCO2 33.5 L, VBG pO2 150.3 H, VBG HCO3 21.7 L, VBG Total CO2 22.8 L, VBG O2 Saturation 98.8 H, VBG Base Excess -2.6 L, VBG Lactic Acid 2.2 H, Sodium 129 L, Potassium 2.5 L*, Chloride 101, Carbon Dioxide 24, Anion Gap 6.5, BUN 14, Creatinine 0.90, Estimated Creat Clear 95, Estimated GFR 66, Est GFR ( Amer) 80, Glucose 93, Calcium 7.0 L, Magnesium 1.7, Total Bilirubin 0.2, AST 24, ALT 15, Alkaline Phosphatase 55, Troponin I < 0.01, NT-Pro-B Natriuret Pep 274 H, Total Protein 4.9 L, Albumin 2.3 L, Globulin 2.6, Albumin/Globulin Ratio 0.9 L, Lipase 43, TSH < 0.02 L, Thyroxine (T4) 6.8, Salicylates < 1.0 L, Acetaminophen < 10 L, Plasma/Serum Alcohol < 10 10/20/24 05:00: Urine Color Yellow, Urine Appearance Clear, Urine pH 5.5, Ur Specific [place] 1.015, Urine Protein Negative, Urine Glucose (UA) Negative, Urine Ketones Negative, Urine Blood Negative, Urine Nitrate Negative, Urine Bilirubin Negative, Urine Urobilinogen 0.2, Ur Leukocyte Esterase Negative, Urine RBC 3-5, Urine WBC 3-5, Ur Squamous Epith Cells 3-5, Urine Bacteria 1+, Hyaline Casts 10-20, Urine Mucus 1+, Urine Opiates Screen Negative, Urine Methadone Screen Negative, Ur Barbituates Screen Negative, Ur Phencyclidine Scrn Negative, Ur Amphetamines Screen Negative, U Benzodiazepines Scrn Negative, Urine Cocaine Screen Negative, U Marijuana (THC) Screen Negative 10/20/24 06:06: CSF Volume 8, CSF Appearance Clear, CSF WBC 7 H, CSF RBC 0, CSF Total Protein 84.0 H 10/20/24 07:17: Troponin I < 0.01 Medical History: Medical History (Updated 10/20/24 @ 07:57 by Tomer Villalta MD) Meningitis Left ankle injury Assessment and Plan Assessment and plan all Dx Assessment and Plan for all problems:: Pharmacokinetic dosing service Objective: Age: 49 yo Serum creatinine: 0.9 mg/dL Height: 65.0 Inches Weight (kg): 69.899 Diagnosis: SUSPECTED INFECTION, ENCEPHALOPATHY Assessment: IBW (kg): 57.00 Dosing wt(kg): 69.899 Estimated Creatinine clearance (ml/min): 66.5 CRCL method: Cockcroft and Gault using ibw(default). Drug selected: Vancomycin Loading dose (mg): 1500 MG Vd (liters): 48.9 (factor used: 0.7 L/kg) Juan (hr-1): 0.060 Half life (hrs): 11.55 CLvanco=?? 2.934 L/hr Recommended dose: 1250 mg Interval: 18 hrs Infusion time (hrs): 2.0 Predicted peak (mcg/mL): 36.5 Predicted trough (mcg/mL): 13.98 Total body weight is being used for vancomycin dosing. Recommendations: Give Vancomycin 1250 mg q 18 hrs with an expected Cpeak of 36.5 mcg/ml and an expected Ctrough of 13.98 mcg/ml AUC 0-24 /JAYDEN Data: JAYDEN 0.5 mcg/mL:?? AUC/JAYDEN:? 1136.1 JAYDEN 1.0 mcg/mL:?? AUC/JAYDEN:? 568.1 --------- JAYDEN 1.5 mcg/mL:?? AUC/JAYDEN:? 378.7 JAYDEN 2.0 mcg/mL:?? AUC/JAYDEN:? 284.0 Thank you for the consult
[2024-10-20] MEDS: VANCOMYCIN/WATER FOR INJ (PEG) 1.5 GM/300 ML PIGGYBACK IV (08:12)
[2024-10-20 08:14] LABS: Hepatitis C Ab Qual. W/ RFX NEGATIVE (Negative)
[2024-10-20] MEDS: HEPARIN SODIUM 5,000 UNIT/ML VIAL 5000 UNIT SUBCUT ×3 (08:20→21:01)
[2024-10-20 08:24] LABS: Iron 108 ug/dL (37-170)
[2024-10-20 08:33] LABS: Total Iron Binding Capacity 221 ug/dL (265-497)
[2024-10-20 08:42] LABS: Reflex Lactic Add Lactic Reflex
[2024-10-20 09:00] LABS: Ferritin 85.0 ng/ml (11.1-264)
[2024-10-20 09:18] LABS: Lactic Acid Follow Up (RFLX 1) 1.6 mmol/L (0.7-2.1)
--- NOTE | 2024-10-20 09:59 | HMH.PHAINT1 ---
Pharmacy Intervention Comments: MD HOLDING OPIATES, GABAPENTIN, AND MUSCLE RELAXERS. PATIENT HAS BEEN FILLING BOTH ZYRTEC AND CLARITIN FOR MONTHS.
[2024-10-20 11:27] LABS: Polynuclear WBCs,CSF 0 %
[2024-10-20 11:28] LABS: Mononuclear WBCs,CSF 1 %
--- NOTE | 2024-10-20 13:31 | PC.NURSE ---
patient did wake up this shift and speak with staff. she was alert and oriented and able to talk about everything that happened before ems showed up to house. she didn't remember having scans or lumbar puncture. went to get patient a glass of water and she was back to sleep upon returning. she continues to be asleep at this time. will arouse to name but drifts back off. states she has a chronic back and neck pain that she has had for 15 years. stated she was on pain meds for that.
--- NOTE | 2024-10-20 14:40 | PC.NURSE ---
on md rounds this morning relayed to md patient had woken up and spoke about her home meds. also mentioned order for toradol and she is allergic. okayed to dc at that time. called md now to relay patient is back awake and crying in pain requesting her home meds be reordered. stated he would look over the chart.
[2024-10-20] MEDS: OXYCODONE 10MG W/APAP 325MG TABLET 1 EACH PO ×2 (14:56→21:00)
[2024-10-20] MEDS: GABAPENTIN 800MG TABLET 800 MG PO ×2 (16:07→21:00)
[2024-10-20] MEDS: LEVOTHYROXINE 125MCG (0.125MG) TAB 125 MCG PO (16:07)
--- NOTE | 2024-10-20 16:40 | PC.NURSE ---
patient is awake and ambulating in room at this time. completely alert and oriented at this time. rene removed per patient request. tolerating diet. complaints of her neck being more stiff than normal and this has gone on for several days. has wide qrs noted on tele. remains on room air. patient did relay she has some home meds in her purse but would keep them up in closet, and send home with family if they visited. encouraged her to ring out as needed
[2024-10-20] MEDS: TIZANIDINE 4MG TABLET 2 MG PO (17:17)
--- NOTE | 2024-10-20 18:06 | PC.NURSE ---
patient asked tech when next dose of pain medication was due, on assessment to offer tylenol that was on mar patient was resting with eyes shut, did reach out and say patients name with no response. will reassess pain when she wakes and as needed
[2024-10-20] MEDS: NICOTINE 21MG/24HR PATCH 21 MG TD (19:57)
[2024-10-20] MEDS: ACETAMINOPHEN 325MG TAB 650 MG PO (19:58)
[2024-10-20 20:06] LABS: Chloride 108 mmol/L (98-107); Potassium 3.5 mmoL/L (3.5-5.1); Sodium 137 mmol/L (136-145)
[2024-10-20 20:08] LABS: Blood Urea Nitrogen 9 mg/dl (7-17); Creatinine Clearance Estimated 105 mL/min (50-200); Creatinine,Serum 0.70 mg/dl (0.52-1.04); Estimated Glomerular Filt Rate 88 ml/min (>60); GFR (African American) 107 ML/MIN (>60)
[2024-10-20 20:09] LABS: Anion Gap 6.5 mEq/L (5-15); Calcium 7.5 mg/dl (8.4-10.2); Carbon Dioxide 26 mmol/L (22.0-30.0); Glucose 125 mg/dl (74-100); Magnesium 2.0 mg/dl (1.6-2.3)
[2024-10-20] MEDS: QUETIAPINE 100MG TABLET 300 MG PO (21:01)
--- NOTE | 2024-10-20 21:24 | PC.NURSE ---
Report called to Martita GAONA on med surge patient is being transferred via wheel chair with chart and all of belongings.
[2024-10-21] MEDS: VANCOMYCIN/WATER FOR INJ (PEG) 1.25 GM/250 ML PIGGYBACK IV ×2 (02:55→21:07)
[2024-10-21 04:00] VITALS: BP 134/68; PULSE 67; RESP 14; TEMP 36.8; O2SAT 98; BMI 27.5
--- NOTE | 2024-10-21 05:42 | PC.NURSE ---
upon arriving to room 215 from ICU, patient was A&OX4 and talking appropriately. Around 3am, vanc was administered and during process patient seemed to be in a deep sleep. 0520 patient was awake after vitals and wanting to go to the bathroom, but was only alert to name and birthday, thought she was in [place], speech was very garbled. When patient was trying to get up she was unsteady and had difficulty getting out of bed and needed assistance. Patient laughed it off stating she didn't know what was wrong with her and requesting her oxy. Patient was assisted in walking to the bathroom. Patients purse was open in chair and this RN noticed a ship officer, cigs, and pill bottles sitting on top - ship officer and cigs locked in room drawer for safety of patient and staff and will be returned on DC - pill bottles were examined and gabapentin, omeprazole, and vitamins were collected - gabapentin was filled 10/19/24 with a count of 120 - gabapentin was counted by Rai RN and Sheree RN twice and 87 pills were located out of 120. gabapentin was locked in the narc box and pharm sheet filled. Dr. Oliver was notified of all the information above. When going back into the room to assess the patient about original oxy request, patient was back in a deep sleep and arousable to stimulation only, not voice. Oxy not administered.
[2024-10-21 07:29] LABS: Hematocrit 35.8 % (37.0-47.0); Hemoglobin 12.1 g/dL (12.2-16.2); Immature Granulocytes % 0.6 %; Mean Corpuscular HGB Conc 33.8 g/dL (31.8-35.4); Mean Corpuscular Hemoglobin 30.1 pg (27.0-31.2); Mean Corpuscular Volume 89.1 fl (81-99); Nucleated Red Blood Cells % 0 %; Platelet Count 130 K/mm3 (142-424); Red Blood Count 4.02 M/mm3 (4.20-5.40); Red Cell Distribution Width-SD 41.7 fL; White Blood Count 4.7 K/mm3 (4.8-10.8)
[2024-10-21 07:43] LABS: Alanine Aminotransferase 17 U/L (12-78); Albumin Level 2.8 g/dl (3.5-5.0); Albumin/Globulin Ratio 1.1 (1.1-1.8); Alkaline Phosphatase 74 U/L (38-126); Anion Gap 7.5 mEq/L (5-15); Aspartate Amino Transferase 25 U/L (14-36); Blood Urea Nitrogen 7 mg/dl (7-17); Calcium 7.4 mg/dl (8.4-10.2); Carbon Dioxide 25 mmol/L (22.0-30.0); Chloride 112 mmol/L (98-107); Creatinine Clearance Estimated 112 mL/min (50-200); Creatinine,Serum 0.70 mg/dl (0.52-1.04); Estimated Glomerular Filt Rate 88 ml/min (>60); GFR (African American) 107 ML/MIN (>60); Globulin 2.5 g/dL (1.3-3.2); Glucose 106 mg/dl (74-100); Magnesium 2.0 mg/dl (1.6-2.3); Phosphorous 3.9 mg/dl (2.5-4.5); Potassium 3.5 mmoL/L (3.5-5.1); Sodium 141 mmol/L (136-145); Total Protein,Serum 5.3 g/dl (6.3-8.2)
[2024-10-21 07:51] LABS: Bilirubin,Total < 0.1 mg/dl (0.2-1.3)
[2024-10-21 08:00] VITALS: BP 164/79; PULSE 74; RESP 20; TEMP 37.2; O2SAT 98
[2024-10-21] MEDS: LEVOTHYROXINE 125MCG (0.125MG) TAB 125 MCG PO (09:00)
[2024-10-21] MEDS: GABAPENTIN 800MG TABLET 800 MG PO ×4 (09:01→21:09)
[2024-10-21] MEDS: OXYCODONE 10MG W/APAP 325MG TABLET 1 EACH PO ×3 (09:01→21:08)
[2024-10-21 12:00] VITALS: BP 164/85; PULSE 82; RESP 14; TEMP 36.7; O2SAT 97
--- NOTE | 2024-10-21 14:08 | HMH.PTEV ---
Physical Therapy Evaluation Rehab PT IP Evaluation Start: 10/21/24 12:36 Freq: .once Status: Active Protocol: Document 10/21/24 14:00 NU (Rec: 10/21/24 14:08 NU [id number]) Subjective/History History History Pt is a 49 y/o female who reported to [facility] ED on 10/20/24 via EMS after family reportedly contacted 911 due to patient waking up confused and dizzy after going to bed last night. Per history & physical note, She took her normal nighttime medications which includes tizanidine, Seroquel, nortriptyline, gabapentin, Crestor and levothyroxine. Awoke early this morning with confusion , weakness, dizziness. On evaluation by EMS, patient was found to be hypotensive and drowsy. Intermittently arousable. On arrival to the ED, she reports some neck pain and light sensitivity. Body temperature 96.9 . Systolic blood pressure 70-80. Reports history of neck surgery, thyroid surgery, hysterectomy. Denies taking different doses of her home medications. States she has been on her meds for many years. Does report that she has had meningitis before, last episode several years ago. Denies nausea or vomiting. Denies chest pain or shortness of breath. States she was feeling well before going to bed, difficult to discern if her neck pain is new or acute or related to chronic condition. Denies any known trauma or falls. On evaluation in the ED, patient's white count is normal at 6.8. Sodium low at 129. Potassium 2.5. Albumin low at 2.3. Given her confusion, neck pain, light sensitivity, LP was performed. CSF fluid grossly clear . Started on empiric antibiotics. Medicine consulted for admission and further management of encephalopathy and electrolyte disturbances in the setting of potential meningitis. Medical History: Hx of cervical fusion, mood disorder, hx of meningitis Subjective Subjective Pt reports she lives in a mobile home without TERRY. Pt reports she lives with her father. Pt reports she is independent with all ADLs and iADLs although requires frequent rest breaks due to chronic neck and back pain. Pt denies use of an AD for ambulation and denies recent falls. Pt reports current 9/10 neck and chest pain. Pt reports her chest has been hurting after receiving what was described as sternal rubs last night to keep her awake in the ambulance and ED. Pt reports she has received PT treatment in the past which only worsened her symptoms and is uninterested in having HHPT or outpatient PT to address pain at this time. New diagnosis of No cancer in past 12 months? [facility] How much help from another person do you currently need... Turning from your None back to your side while in a flat bed without using bedrails? Moving from lying on None back to sitting on the side of a flat bed without using bedrails? Moving to and from a None bed to a chair ( including a wheelchair)? Standing up from a None chair using your arms? (e.g., wheelchair, bedside chair) Walking in hospital None room? Climbing 3-5 steps None with a railing? Mobility Score 24 Mobility Level [place] [id number] Walk 250 feet or more Mobility Calculator Rehab PT IP Eval Objective Appearance Patient Behavior Appropriate,Cooperative Patient Orientation Place,Name,Birthday,Situation Difficulty following none instructions Speech Pattern Clear,Appropriate Ambulation Patient Able to Yes Ambulate Ambulation Observation IP General Gait No Deviations/Normal Pattern Observation Ambulation Distance 50 (feet) Ambulation Assistive None Device Ambulation Ability Independent Balance Ability to Arise Able, w/o using arms Sitting Balance Steady, safe Standing Balance Narrow stance w/o support Dynamic Sitting Normal Balance Ability Dynamic Standing Good Balance Ability Transfers Bed Transfer Ability Independent Sit to Stand Bed Independent Transfer Ability ROM All Extremities PT ROM Status WFL MMT All Extremities PT MMT WFL Rehab PT IP prob,goals,plan Problems Date of Evaluation: 10/21/24 Rehab Potential Rehab Potential Innapropriate for Skilled Therapy Discharge Plan PT Discharge Plan Pt is currently at baseline functional mobility status and without inpatient physical therapy needs at this time. Pt is appropriate to discharge home once deemed medically stable by MD. [place] Complexity Eval Charge Codes [id number] - Low Complexity PHYSICIAN CERTIFICATION: I certify the specified therapy services for Basilia Yoder are required, authorized, and reviewed every 30 days.
[2024-10-21] MEDS: LIDOCAINE 5% TRANSDERMAL PATCH 1 EACH TD (14:49)
[2024-10-21 16:00] VITALS: BP 164/85; PULSE 93; RESP 18; TEMP 36.9; O2SAT 99
--- NOTE | 2024-10-21 17:40 | P.PN_ITS ---
Subjective *Date: 10/21/24 *Time: 17:40 Interval history: seen at bedside, no fevers overnight, denied CP, SOB, complains of neck pain Exam Data for Last 24 hours Vital signs and Labs for Last 24 Hours: Temp Pulse Resp BP Pulse Ox O2 Del Method 98.4 F 93 H 18 164/85 H 99 Room Air 10/21/24 16:00 10/21/24 16:00 10/21/24 16:00 10/21/24 16:00 10/21/24 16:00 10/21/24 17:00 Laboratory Results - last 24 hr 10/20/24 19:30: Sodium 137, Potassium 3.5 D, Chloride 108 H, Carbon Dioxide 26, Anion Gap 6.5, BUN 9 D, Creatinine 0.70 D, Estimated Creat Clear 105, Estimated GFR 88, Est GFR ( Amer) 107 D, Glucose 125 H D, Calcium 7.5 L, Magnesium 2.0 D 10/21/24 06:54: WBC 4.7 L D, RBC 4.02 L, Hgb 12.1 L, Hct 35.8 L, MCV 89.1, MCH 30.1, MCHC 33.8, RDW 12.8, Plt Count 130 L, MPV 10.4, Neut % (Auto) 33.3 L, Lymph % (Auto) 55.7 H, [place] % (Auto) 7.2, Eos % (Auto) 2.6, Baso % (Auto) 0.6, Neut # (Auto) 1.6 L, Lymph # (Auto) 2.6, [place] # (Auto) 0.3, Eos # (Auto) 0.1, Baso # (Auto) 0.0, Sodium 141, Potassium 3.5, Chloride 112 H, Carbon Dioxide 25, Anion Gap 7.5, BUN 7, Creatinine 0.70, Estimated Creat Clear 112, Estimated GFR 88, Est GFR ( Amer) 107, Glucose 106 H, Calcium 7.4 L, Phosphorus 3.9, Magnesium 2.0, Total Bilirubin < 0.1 L, AST 25, ALT 17, Alkaline Phosphatase 74, Total Protein 5.3 L, Albumin 2.8 L D, Globulin 2.5, Albumin/Globulin Ratio 1.1 I & O for Last 24 hours: Intake & Output 10/18/24 10/19/24 10/20/24 07/26/25 23:59 23:59 23:59 23:59 Intake Total 2110 / 2110 250 / 250 Output Total 1750 / 1750 Balance 360 / 360 250 / 250 Weight 69.899 kg 74.843 kg Microbiology Reports for the Last 24 Hours: Microbiology 10/20/24 04:15 Blood - Other Aerobic Organism ID Result 1 - Final Not Reportable 10/20/24 04:15 Blood - Other Aerobic Organism ID Result 2 - Final Not Reportable 10/20/24 04:15 Blood - Other Aerobic Organism ID Result 3 - Final Not Reportable 10/20/24 04:15 Blood - Other Aerobic Organism ID Result 4 - Final Not Reportable 10/20/24 04:15 Blood - Other Antimicrobic Susceptibility - Final Not Reportable 10/20/24 04:25 Blood Blood Culture - Preliminary 10/20/24 06:06 Cerebral Spinal Fluid Gram Stain - Final 10/20/24 06:06 Cerebral Spinal Fluid CSF Culture - Preliminary NO GROWTH AFTER 24 HOURS 10/20/24 04:50 Blood Blood Culture - Preliminary NO GROWTH AFTER 24 HOURS Constitutional Constitutional: no acute distress *Routine HEENT Exam Head: Present normocephalic Eye: Present EOMI and PERRL ENT: Present mucous membranes moist *Routine Neck Exam Neck: Present supple; Absent lymphadenopathy *Routine Respiratory Exam Respiratory: Present CTA bilaterally *Routine Cardiovascular Exam Cardiovascular: Present RRR *Routine Abdominal Exam Abdominal: Present soft and normoactive bowel sounds; Absent tenderness *Routine Extremities Exam Extremities: Absent cyanosis, clubbing or edema *Routine Skin Exam Skin: Present warm; Absent rash *Routine Neurological Exam Neurological: Present alert and oriented X3 Assessment and Plan *Assessment and plan (1) Encephalopathy acute: Status: Acute Category: Medical Code(s): G93.40 - Encephalopathy, unspecified (2) Hypothermia: Status: Acute Category: Medical Code(s): T68.XXXA - Hypothermia, initial encounter (3) Hypotension: Status: Acute Category: Medical Code(s): I95.9 - Hypotension, unspecified (4) Polypharmacy: Status: Acute Category: Medical Code(s): Z79.899 - Other senior care (current) drug therapy (5) Hyponatremia: Status: Acute Category: Medical Code(s): E87.1 - Hypo-osmolality and hyponatremia (6) Hypokalemia: Status: Acute Category: Medical Code(s): E87.6 - Hypokalemia Plan 49-year-old who presented with confusion, hypotension, hypothermia. Unclear etiology of her encephalopathy. Discussed case with ER physician, request admission for further management of potential meningitis in light of her altered mental status. I agreed to admit. Admitted to stepdown level of care. Necessitating inpatient management. Problems addressed as follows: Encephalopathy - resolved Photophobia - resolved - differential includes polypharmacy, meningitis, hyponatremia. LP obtained in the ER - no significant abnormalities found on CSF - Continue ceftriaxone 2 g daily, vancomycin IV for now - UDS negative for opiates - In regard to polypharmacy, will hold her home Seroquel, tizanidine, gabapentin and monitor for improvement in mentation patient do not agree with holding neurontin as inpatient and is adamant about taking her gabapentin, patient is seemingly over taking her Gabapentin pills than prescribed on pill count of her neurontin - CT and CTA of head personally reviewed showing no mass effect, christa large vessel occlusions, or acute strokes. Will consider MRI if mentation not improving with holding medications or fluid studies inconclusive Anemia: hemoglobin low at 10.6. Unsure the chronicity of possible anemia; iron studies pending; transfusion threshold hemoglobin less than 7 no active signs of bleeding Hypokalemia Hyponatremia monitor Mood disorder: Holding psych meds pending med rec completion and improvement in mentation. Attempting to obtain records from [place] about patient's history Chronic pain: Holding home opiates and gabapentin and muscle relaxers. Monitor for improvement in mentation. Caution and will monitor for signs of withdrawal Hypothyroid: On levothyroxine at home, will confirm dose prior to resuming. TSH less than 0.02. full code Lovenox 40 mg subcu daily Regular diet likely dc tomorrow, patient says she does not feel ready for dc today
[2024-10-21 20:00] VITALS: BP 166/92; PULSE 80; RESP 16; TEMP 36.8; O2SAT 99
[2024-10-21] MEDS: QUETIAPINE 100MG TABLET 300 MG PO (21:08)
[2024-10-21] MEDS: ACETAMINOPHEN 325MG TAB 650 MG PO (22:48)
[2024-10-21 23:58] VITALS: BP 134/71; PULSE 78; RESP 16; TEMP 36.4; O2SAT 99
[2024-10-22 04:00] VITALS: BP 150/82; PULSE 72; RESP 16; TEMP 36.6; O2SAT 98; BMI 28.1
[2024-10-22] MEDS: LEVOTHYROXINE 125MCG (0.125MG) TAB 125 MCG PO (06:13)
[2024-10-22] MEDS: OXYCODONE 10MG W/APAP 325MG TABLET 1 EACH PO (06:15)
--- NOTE | 2024-10-22 06:43 | PC.NURSE ---
patient is alert and oriented x4, ambulates in room independently, complained of pain throughout the shift, medicated per mar for pain, patient has bruising to left arm that she says is from IVs, right IV not working this am, patient refuses attempt to get IV access, MD notified. After getting night time meds patient was lethargic and states i dont feel right i feel like i did when i came in . MD was made aware. At 0600 patient stated where is my pain medication it was due at 3. this nurse explained to her that her pain medication was PRN and she had to ask for it. She stated that she had been asking for it for 3 hours now. the nurse explained to patient that this was the first time she had asked me for it since previous administration. pain medication was given per mar and patient apologized. no other needs voiced at this time. call button in reach.
[2024-10-22 08:00] VITALS: BP 151/108; PULSE 77; RESP 16; TEMP 36.7; O2SAT 100
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
[2024-10-22] MEDS: LIDOCAINE 5% TRANSDERMAL PATCH 1 EACH TD (09:35)
[2024-10-22 09:45] LABS: Hematocrit 37.5 % (37.0-47.0); Hemoglobin 12.3 g/dL (12.2-16.2); Immature Granulocytes % 0.4 %; Mean Corpuscular HGB Conc 32.8 g/dL (31.8-35.4); Mean Corpuscular Hemoglobin 28.9 pg (27.0-31.2); Mean Corpuscular Volume 88.0 fl (81-99); Nucleated Red Blood Cells % 0 %; Platelet Count 143 K/mm3 (142-424); Red Blood Count 4.26 M/mm3 (4.20-5.40); Red Cell Distribution Width-SD 40.2 fL; White Blood Count 4.8 K/mm3 (4.8-10.8)
[2024-10-22 09:50] LABS: Chloride 106 mmol/L (98-107)
[2024-10-22 09:51] LABS: Potassium 3.6 mmoL/L (3.5-5.1); Sodium 140 mmol/L (136-145)
[2024-10-22 09:54] LABS: Anion Gap 11.6 mEq/L (5-15); Blood Urea Nitrogen 5 mg/dl (7-17); Calcium 7.5 mg/dl (8.4-10.2); Carbon Dioxide 26 mmol/L (22.0-30.0); Creatinine Clearance Estimated 115 mL/min (50-200); Creatinine,Serum 0.70 mg/dl (0.52-1.04); Estimated Glomerular Filt Rate 88 ml/min (>60); GFR (African American) 107 ML/MIN (>60); Glucose 95 mg/dl (74-100)
--- NOTE | 2024-10-22 12:27 | PC.NURSE ---
home meds and cigarettes returned to patient at discharge
[2024-10-22 14:09] LABS: N meningitidis (encapsulated) Not Detected (Not Detected)
--- NOTE | 2024-10-23 11:00 | SW/DCPLANNER ---
Spoke with patient on the phone. Patient stated that she is doing good, Patient stated that she is aware of her upcoming appointment. Patient stated that she has no concerns or questions at this time. Patient stated that she was able to get her new medicine picked up. Frandy Duran
== END 2024-10-22 12:27 | disposition home or self-care (01) | DRG 71 ==
LOC: ER 06:22 → ICU 06:22 → 2ND 21:10
PROVIDERS: Admitting Provider Internal Medicine Adolescent Medicine; Emergency Provider Emergency Medicine; Visit Provider Internal Medicine Adolescent Medicine
DX: G93.40 Encephalopathy, unspecified (principal); E87.1 Hypo-osmolality and hyponatremia; E87.6 Hypokalemia; E03.9 Hypothyroidism, unspecified; I95.9 Hypotension, unspecified; G89.29 Other chronic pain; D64.9 Anemia, unspecified; F39 Unspecified mood [affective] disorder; H53.149 Visual discomfort, unspecified; T68.XXXA Hypothermia, initial encounter; F17.200 Nicotine dependence, unspecified, uncomplicated; Z88.1 Allergy status to other antibiotic agents; Z79.899 Other long term (current) drug therapy; Z79.890 Hormone replacement therapy; Z98.1 Arthrodesis status; Z88.5 Allergy status to narcotic agent
CPT/HCPCS: 36415; 51702; 70450; 70496; 70498; 71275; 80048; 80053; 80074; 80307; 80320; 80329; 81001; 82728; 82803; 83540; 83550; 83605; 83690; 83735; 83880; 84100; 84155; 84436; 84443; 84484; 85025; 85610; 87040; 87070; 87077; 87205; 87389; 87483; 89051; 93005; 97161; J0612; J0696; J1644; J3372; J3475; J3480; J7030; J7120; Q9967